=== PATIENT | male | born 1940 | race Caucasian/White ===

== ENCOUNTER 2020-10-20 08:58 | Emergency (ER) | payer OTHER, MEDICARE, SELFPAY ==
[2020-10-20] VITALS (7 sets, daily range): BP systolic 118–152; BP diastolic 56–88; PULSE 48–64; RESP 16–18; TEMP 36.4–37.1; O2SAT 95–100; BMI 23.6
--- NOTE | 2020-10-20 09:00 | XR_ITS ---
WS: [id number] XR chest 1V portable [id number] REASON FOR EXAM: syncope FINDINGS: Mild tortuosity and ectasia of the thoracic aorta. Heart size is within normal limits. Calcified granulomatous changes in both hemithoraces. No active pulmonary parenchymal or pleural disease. Deformity left humeral head which may be the result of old trauma. Mild changes of degenerative spond ylosis in the mid and lower thoracic spine. XR/XR chest 1V portable [id number] IMPRESSION: No acute chest abnormality.
--- NOTE | 2020-10-20 09:00 | ECG_ITS ---
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
--- NOTE | 2020-10-20 09:22 | ED_ITS ---
HPI - Dizziness General: Chief Complaint: Dizziness Stated Complaint: [facility] ref/vertigo/elevated BP Time Seen by Provider: 10/20/20 09:05 Source: patient and family (Spouse) Mode of arrival: ambulatory Limitations: no limitations History of Present Illness: HPI Narrative: 80-year-old male patient presents to the emergency department with dizziness and nausea for 2 weeks. He was sent to the emergency department due to high blood pressure and [facility]igo symptoms by the [facility]. Blood pressure on arrival was 136/57. He denies hypertensive history. He reports history of hypercholesterolemia, he denies falls or syncope. He reports occasional feel of falling. Spouse reports last night he did exhibit chills. Denies fever, vomiting or diarrhea. MD elicited complaint: dizziness, near syncope, difficulty walking and disequilibrium Onset (ago): week(s) (2) Timing: gradual onset and intermittent Severity: moderate Description: lightheadedness, off-balance, difficulty walking, near-syncope and ongoing Context: change in body position History of similar symptoms: No Exacerbating factors: movement/ambulation, change in body position and standing Relieving factors: remaining still and rest Associated symptoms: Reports no associated symptoms and nausea; Denies chest pain, chills, diaphoresis, headache(s), malaise, nasal congestion, palpitations, syncope or vomiting Associated neuro symptoms: Reports no associated symptoms; Deny confusion or numbness in extremities Stroke scale total: 1 Review of Systems General: Reports: 10 or more systems reviewed and unremarkable except in HPI and below Const: Reports: fatigue; Denies: fever(s), chills, change in appetite, malaise or diaphoresis Eyes: Denies: change in vision, blurry vision or eye redness ENMT: Denies: throat pain, dental pain, disequilibrium, nasal discharge or nasal congestion Card: Reports: lightheadedness (with position change); Denies: chest pain, palpitations, irregular heart rhythm, edema, syncope or orthopnea Resp: Denies: dyspnea, productive cough, non-productive cough, wheezing or chest congestion GI: Reports: nausea; Denies: abdominal pain, vomiting, early satiety, constipation or GI cramping : Denies: flank pain, difficulty urinating, dysuria or difficulty starting urination Musc: Reports: joint pain (chronic arthritis); Denies: neck pain or back pain Skin/Breast: Denies: rash, pruritus, erythema, changing lesions or changes in skin color Neuro: Reports: difficulty walking (feeling of falling), dizziness and vertigo; Denies: headache(s), numbness in extremities, weakness in extremities, sensory changes, frequent falls, confusion, behavioral changes, Slurred speech present, difficulty communicating thoughts, seizure-like activity or involuntary movements Psych: Denies: anxiety or depression Adam/Lymph: Denies: easy bruising Physical Exam Const: COMMON NORMALS: no acute distress, patient oriented x3, healthy appearing and alert GENERAL APPEARANCE: cooperative, comfortable and well hydrated ORIENTATION/CONSCIOUSNESS: Yes oriented to person, Yes oriented to place and Yes oriented to time HENMT: COMMON NORMALS: normocephalic, atraumatic, Normal external nose present and moist oral mucous membranes HEAD & SCALP: normocephalic and atraumatic FACE & SINUS: normal facial exam and face symmetric NOSE: Normal external nose present Eye: COMMON NORMALS: Equal, round and reactive pupils present and EOMs intact bilaterally GENERAL EYE: appearance normal, both eyes and all related structures PUPIL: Yes Equal, round and reactive pupils present Neck/C-Spine: COMMON NORMALS: full ROM, no lymphadenopathy and no meningeal signs GENERAL: Yes normal visual inspection and Yes trachea midline CERVICAL SPINE: Yes cervical ROM normal Lymph: LYMPHATIC: no lymphadenopathy noted Chest: COMMONS NORMALS: normal inspection of the chest Resp: COMMON NORMALS: normal respiratory effort and clear to auscultation bilaterally AUSCULTATION: clear to auscultation bilaterally Cardio: COMMON NORMALS: regular rhythm, S1 normal heart sound present and S2 normal heart sound present RHYTHM: regular rhythm HEART SOUNDS: S1 normal heart sound present and S2 normal heart sound present GI: COMMON NORMALS: Soft to palpation and non-tender INSPECTION: Yes normal to inspection PALPATION: Yes Soft to palpation : COMMON NORMALS: Yes no CVA tenderness BLADDER/KIDNEY EXAM: Yes no CVA tenderness Back/Pelvis: COMMON NORMALS: no CVA tenderness and thoracic and lumbar spine normal to inspection Extremity: COMMON NORMALS: normal to inspection, full ROM and capillary refill normal Neuro: LU COMA SCALE: document GCS findings Lu coma scale eye opening: Spontaneous Jaroso coma scale verbal response: Orientated Jaroso coma scale motor response: Obey commands Lu coma scale total score: 15 COMMON NORMALS: patient oriented x3 and no focal motor deficits SENSORIUM/ORIENTATION: Yes alert, Yes oriented to person, Yes oriented to place and Yes oriented to time MENINGEAL SIGNS: Yes no meningeal signs COORDINATION/BALANCE: [id number] test normal and Normal rapid alternating movements of the distal upper extremity present (Neuro) SPEECH: speech normal GAIT: Yes Normal gait present MOTOR EXAM: 5/5 motor strength present throughout, no tremor noted, Normal motor muscle tone present throughout and Pronator motor function present pronator drift of left upper extremity COORDINATION: [id number] test normal and rapid alternating movement UE normal Psych: COMMON NORMALS: mental status grossly normal, Normal thought process present and cooperative ACTIVITY/MOTOR BEHAVIOR: Yes appropriate eye contact THOUGHT PROCESS: Normal thought process present Skin: COMMON NORMALS: no rashes or lesions noted and turgor normal GENERAL SKIN EXAM: no rashes or lesions noted and turgor normal Course ED course: 80-year-old male patient who presents to the emergency department with 2-week history of dizziness. Patient had positive drift, abnormal neurological exam, CT of the head without contrast negative, spoke with Dr. Askew my concern of possible cerebellar involvement, CTA of the head and neck ordered with minimal atherosclerotic plaque in the intracranial and extracranial carotid arteries without significant stenosis. No occlusions of the [place] or significant atherosclerotic disease. Serology testing without significant abnormality, 2-hour troponin without elevation of delta. Will start on aspirin therapy daily. He is advised to follow-up with his primary care provider in 1 week. Advised to return to the emergency department for concerning symptoms. He is requesting something for nausea at home as medication he received here did help. Will start on meclizine and Zofran. Results of serology and radiology exams discussed with the family and patient. Questions were answered. He remained sinus rhythm/bradycardic to classroom monitor, rate in the 50s.. Vital Signs: Vital signs: Vital Signs Temperature 97.6 F 10/20/20 09:05 Pulse Rate 55 L 10/20/20 13:38 Respiratory Rate 18 10/20/20 13:38 Blood Pressure 118/64 10/20/20 13:38 Pulse Oximetry 97 10/20/20 13:38 MDM - Dizziness Lab Data: Labs: Lab Results 10/20/20 10/20/20 10/20/20 Range/Units 09:29 09:29 09:29 WBC 5.6 (4.0-10.0) 10^3/ uL RBC 5.18 (4.1-5.3) 10^6/u L Hgb 15.2 (11.7-16.6) g/dL Hct 45.8 (42.0-52.0) % MCV 88.4 (80-94) fL MCH 29.3 (28.0-34.0) pg MCHC 33.2 (30.0-36.0) g/dL RDW 12.6 (12.1-15.1) % Plt Count 181 (130-400) 10^3/c mm MPV 9.8 (7.4-10.4) fL Neut % (Auto) 68.4 % Lymph % (Auto) 20.8 % [place] % (Auto) 8.1 % Eos % (Auto) 1.6 % Baso % (Auto) 0.9 % Neut # (Auto) 3.82 (1.8-7.7) 10^3/u L Lymph # (Auto) 1.2 (0.8-4.8) 10^3/u L [place] # (Auto) 0.5 (0.2-0.9) 10^3/u L Eos # (Auto) 0.1 (0.0-0.8) 10^3/u L Baso # (Auto) 0.1 (0.0-0.1) 10^3/u L Nucleated RBC % (a uto) 0 % Nucleated RBCs # 0.0 /100WBC Sodium 138 (136-145) mmol/L Potassium 4.3 (3.5-5.1) mmol/L Chloride 104 (98-107) mmol/L Carbon Dioxide 24 (22-29) mmol/L Anion Gap 14.3 (5-19) BUN 24 H (8-23) mg/dL Creatinine 0.9 (0.7-1.2) mg/dL GFR Calculation Not Reportable Glucose 118 H (65-115) mg/dL Calculated Osmolal ity 291 (285-295) mOsm/k g Calcium 9.0 (8.5-10.5) mg/dL Total Bilirubin 0.6 (0.15-1.2) mg/dL AST 21 (0-40) U/L ALT 16 (0-41) U/L Alkaline Phosphata se 50 (40-130) IU/L Troponin T Baselin e 15 (0-15) ng/L Troponin T 120 Min katie (0-15) ng/L Delta Troponin T (0-10) ABS# Total Protein 6.2 L (6.6-8.7) g/dL Albumin 4.2 (3.5-5.2) g/dL Globulin 2.0 (1.3-4.6) g/dL 11/25/20 Range/Units 10:48 WBC (4.0-10.0) 10^3/ uL RBC (4.1-5.3) 10^6/u L Hgb (11.7-16.6) g/dL Hct (42.0-52.0) % MCV (80-94) fL MCH (28.0-34.0) pg MCHC (30.0-36.0) g/dL RDW (12.1-15.1) % Plt Count (130-400) 10^3/c mm MPV (7.4-10.4) fL Neut % (Auto) % Lymph % (Auto) % [place] % (Auto) % Eos % (Auto) % Baso % (Auto) % Neut # (Auto) (1.8-7.7) 10^3/u L Lymph # (Auto) (0.8-4.8) 10^3/u L [place] # (Auto) (0.2-0.9) 10^3/u L Eos # (Auto) (0.0-0.8) 10^3/u L Baso # (Auto) (0.0-0.1) 10^3/u L Nucleated RBC % (a uto) % Nucleated RBCs # /100WBC Sodium (136-145) mmol/L Potassium (3.5-5.1) mmol/L Chloride (98-107) mmol/L Carbon Dioxide (22-29) mmol/L Anion Gap (5-19) BUN (8-23) mg/dL Creatinine (0.7-1.2) mg/dL GFR Calculation Glucose (65-115) mg/dL Calculated Osmolal ity (285-295) mOsm/k g Calcium (8.5-10.5) mg/dL Total Bilirubin (0.15-1.2) mg/dL AST (0-40) U/L ALT (0-41) U/L Alkaline Phosphata se (40-130) IU/L Troponin T Baselin e (0-15) ng/L Troponin T 120 Min katie 15.43 H (0-15) ng/L Delta Troponin T 0.43 (0-10) ABS# Total Protein (6.6-8.7) g/dL Albumin (3.5-5.2) g/dL Globulin (1.3-4.6) g/dL Imaging Data^: CXR: Radiologist's impression: [address] [address] XRay Report Signed Patient: Landon Guevara Unit #: [id number] : 1940 Age/Sex: 80 / M ADM Date: 10/20/20 Loc: ER Room/Bed: Attending Dr: Ordering Provider/Ordering MD: Rukhsana Erickson Date of Service: 10/20/20 Procedure(s): XR chest 1V portable [id number] Accession Number(s): [id number] Report Number: [id number] WS: [id number] XR chest 1V portable [id number] REASON FOR EXAM: syncope FINDINGS: Mild tortuosity and ectasia of the thoracic aorta. Heart size is within normal limits. Calcified granulomatous changes in both hemithoraces. No active pulmonary parenchymal or pleural disease. Deformity left humeral head which may be the result of old trauma. Mild changes of degenerative spondylosis in the mid and lower thoracic spine. XR/XR chest 1V portable [id number] IMPRESSION: No acute chest abnormality. Dictated By: Uvaldo Latif Jr, MD Signed By: Uvaldo Latif Jr, MD Signed Date/Time: 10/20/20952 DD/ 8 CT Head: Radiologist's impression: [address] [address] [address] Scan Report Signed Patient: Landon Guevara Unit #: [id number] : 1940 Age/Sex: 80 / M ADM Date: 10/20/20 Loc: ER Room/Bed: Attending Dr: Ordering Provider/Ordering MD: Rukhsana Erickson Date of Service: 10/20/20 Procedure(s): CT head wo con* [id number] Accession Number(s): [id number] Report Number: [id number] WS: [id number] CT HEAD NONCONTRAST HISTORY: Dizziness/ataxia TECHNIQUE: Contiguous axial imaging performed through the brain in 2.5 mm imaging. Bone and soft tissue windows. Sagittal and coronal reformats reviewed. All CT scans at [facility] use at least one of these dose optimization techniques: automated exposure control; mA and/or kV adjustment per patient size (includes targeted exams where dose is matched to clinical indication); or iterative reconstruction. DLP: 878.67 mGy.cm COMPARISON: None available. No acute intracranial hemorrhage, midline shift or mass effect. Mild atrophy and mild to moderate chronic microvascular ischemic changes. Small lacunar infarct in the RIGHT basal ganglia. Ventricles: Normal size with no hydrocephalus. Paranasal sinuses: As visualized are clear. Mastoid air cells: Well pneumatized. Calvarium and scalp: Skull is intact with no soft tissue edema or swelling. CT/CT head wo con* [id number] IMPRESSION: 1. No acute intracranial hemorrhage. 2. Mild atrophy and chronic ischemic disease. Other Imaging: Radiologist's impression: [address] [address] [address] Scan Report Signed Patient: Landon Guevara Unit #: [id number] : 1940 Age/Sex: 80 / M ADM Date: 10/20/20 Loc: ER Room/Bed: Attending Dr: Ordering Provider/Ordering MD: Rukhsana Erickson Date of Service: 10/20/20 Procedure(s): CT angio headneck* [id number] Accession Number(s): [id number] Report Number: [id number] WS: [id number] CT ANGIOGRAM CEREBRAL AND CAROTID ARTERIES HISTORY: vertigo with ataxia TECHNIQUE: CT angiogram is performed of the carotid and cerebral arteries. Duri ng arterial injection imaging is obtained from the skull vertex to the aortic arch in 1.25 mm imaging. Coronal and sagittal reformats are submitted. Additional multi planar reformats of the carotid and cerebral arteries are submitted, MIP imaging also reviewed. NASCET criteria utilized. All CT scans at [facility] use at least one of these dose optimization techniques: automated exposure control; mA and/or kV adjustment per patient size (includes targeted exams where dose is matched to clinical indication); or iterative reconstruction. CONTRAST: Omnipaque 350; 95 mL IV. DLP: 2409.89 mGy-cm. COMPARISON: None available. Carotid Angiogram: Right carotid: Common carotid artery: Arises normally from the innominate artery. No significant plaque or stenosis. Internal carotid artery: Mildly tortuous with a small amount of calcified plaque at the bifurcation. No significant stenosis. External carotid artery: Patent. Left carotid: Common carotid artery: Arises normally from the aorta. No significant plaque or stenosis. Internal carotid artery: No plaque or stenosis. External carotid artery: Patent. Right vertebral artery: Unremarkable. Left vertebral artery: Unremarkable. Arises normally from the subclavian artery. Subclavian arteries: No stenosis or significant abnormality. Upper thorax: Normal. Thyroid gland: Normal. 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 CEREBRAL ANGIOGRAM: Intracranial vertebral arteries: Normal with no significant atherosclerosis. Basilar artery: No significant stenosis or occlusion. No aneurysm. Intracranial Internal carotid arteries: Small noncalcified plaque in the intracranial carotid arteries with no stenosis. Middle cerebral arteries: Normal. Anterior cerebral arteries and ACOM: Normal. Posterior cerebral arteries and PCOM's: Normal. Dural venous sinuses are normally enhancing. Mastoid air cells: Normal. Paranasal sinuses: Normal. Calvarium: Normal. CT/CT angio headneck* [id number] IMPRESSION: 1. Minimal atherosclerotic plaque within the intracranial and extracranial carotid arteries without significant stenosis. 2. No occlusions within the [place] or significant atherosclerotic disease. Vertebral arteries are both patent. EKG Data^: EKG 1: EKG interpretation date: 10/20/20 EKG interpretation time: 09:24 Other EKG comments: Sinus bradycardia, borderline ECG, ventricular rate 47 EKG 2: EKG interpretation date: 10/20/20 EKG interpretation time: 10:52 Other EKG comments: Sinus bradycardia, borderline ECG, ventricular rate 47 Discharge Plan Discharge Patient Disposition: Home Clinical Impression: Vertigo, Ataxia, Bradycardia Condition: Stable Prescriptions: New Adult Low Dose Aspirin 81 mg tablet,delayed release (DR/EC) 81 mg PO DAILY Qty: 30 RF: 0 meclizine 25 mg tablet 25 mg PO TID PRN (Reason: dizziness) Qty: 30 RF: 0 Zofran 4 mg tablet 4 mg PO Q4H Qty: 10 RF: 0 No Action Mobic 7.5 mg Tablet 7.5 mg PO DAILY RF: 0 pravastatin 80 mg Tablet 80 mg PO DAILY RF: 0 Flomax 0.4 mg Capsule 0.4 mg PO BID RF: 0 finasteride 5 mg Tablet 5 mg PO DAILY RF: 0 Fish Oil 1 cap PO DAILY RF: 0 Discharge Orders: Discharge Order (Routine); Ordered 10/20/20 Ordered By: Rukhsana Erickson Discharge Diet: Usual diet Discharge Activity: Limit activity as instructed Patient Instructions: Vertigo (ED), Dizziness (ED) Activity Restrictions/Additional Instructions: Drink plenty of fluids Slow to rise and slow with position changes to allow your body to acclimate to the position to avoid dizziness and falls Return to the emergency department if you develop weakness of one extremity, facial drooping or worst headache of your life, start aspirin, baby aspirin daily until follow-up with your primary care provider Meclizine has been prescribed, take medication as needed for vertigo symptoms. Follow up with your primary care provider in 1 week COVID results will be called to you, please remain in quarantine until results are known, if positive, you will be contacted by the health department Coding Level of Care Code ED Service Writer for Hi Fwmarleny Exam Comprehensive
--- NOTE | 2020-10-20 09:23 | CT_ITS ---
WS: [id number] CT HEAD NONCONTRAST HISTORY: Dizziness/ataxia TECHNIQUE: Contiguous axial imaging performed through the brain in 2.5 mm imaging. Bone and soft tiss ue windows. Sagittal and coronal reformats reviewed. All CT scans at [facility] use at ast one of these dose optimization techniques: automated exposure control; mA and/or kV adjustment pe r patient size (includes targeted exams where dose is matched to clinical indication); or iterative r econstruction. DLP: 878.67 mGy.cm COMPARISON: None available. No acute intracranial hemorrhage, midline shift or mass effect. Mild atrophy and mild to moderate chronic microvascular ischemic changes. Small lacunar infarct in th e RIGHT basal ganglia. Ventricles: Normal size with no hydrocephalus. Paranasal sinuses: As visualized are clear. Mastoid air cells: Well pneumatized. Calvarium and scalp: Skull is intact with no soft tissue edema or swelling. CT/CT head wo con* [id number] IMPRESSION: 1. No acute intracranial hemorrhage. 2. Mild atrophy and chronic ischemic disease.
[2020-10-20 09:40] LABS: Basophils # 0.1 10^3/uL (0.0-0.1); Basophils % 0.9 %; Eosinophils # 0.1 10^3/uL (0.0-0.8); Eosinophils % 1.6 %; Hematocrit 45.8 % (42.0-52.0); Hemoglobin 15.2 g/dL (11.7-16.6); Lymphocytes # 1.2 10^3/uL (0.8-4.8); Lymphocytes % 20.8 %; Mean Corpuscular HGB Conc 33.2 g/dL (30.0-36.0); Mean Corpuscular Hemoglobin 29.3 pg (28.0-34.0); Mean Corpuscular Volume 88.4 fL (80-94); Mean Platelet Volume 9.8 fL (7.4-10.4); Monocytes # 0.5 10^3/uL (0.2-0.9); Monocytes % 8.1 %; Neutrophils # 3.82 10^3/uL (1.8-7.7); Neutrophils % 68.4 %; Nucleated Red Blood Cells % 0 %; Platelet Count 181 10^3/cmm (130-400); Red Blood Count 5.18 10^6/uL (4.1-5.3); Red Cell Distribution Width 12.6 % (12.1-15.1); White Blood Count 5.6 10^3/uL (4.0-10.0)
[2020-10-20] MEDS: ondansetron 2 mg/ML SDV 2 mL 4 MG IVP (09:45)
[2020-10-20 10:02] LABS: Alanine Aminotransferase 16 U/L (0-41); Albumin Level 4.2 g/dL (3.5-5.2); Alkaline Phosphatase 50 IU/L (40-130); Aspartate Amino Transferase 21 U/L (0-40); Blood Urea Nitrogen 24 mg/dL (8-23); Carbon Dioxide 24 mmol/L (22-29); Chloride 104 mmol/L (98-107); Glucose 118 mg/dL (65-115); Osmolality Calculated 291 mOsm/kg (285-295); Sodium 138 mmol/L (136-145); Total Bilirubin 0.6 mg/dL (0.15-1.2); Total Protein 6.2 g/dL (6.6-8.7)
[2020-10-20 10:03] LABS: Troponin(5th) Baseline 15 ng/L (0-15)
[2020-10-20 10:17] LABS: Anion Gap 14.3 (5-19); Potassium 4.3 mmol/L (3.5-5.1)
--- NOTE | 2020-10-20 11:00 | ECG_ITS ---
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
[2020-10-20 11:19] LABS: Troponin 5 2HR 15.43 ng/L (0-15); Troponin 5 2HR Delta 0.43 ABS# (0-10)
--- NOTE | 2020-10-20 12:30 | CT_ITS ---
WS: [id number] CT ANGIOGRAM CEREBRAL AND CAROTID ARTERIES HISTORY: vertigo with ataxia TECHNIQUE: CT angiogram is performed of the carotid and cerebral arteries. During arterial injection imaging is obtained from the skull vertex to the aortic arch in 1.25 mm imaging. Coronal and sagittal reformats are submitted. Additional multi planar reformats of the carotid and cerebral arteries are submitted, MIP imaging also reviewed. NASCET criteria utilized. All CT scans at [facility] use at least one of these dose optimization techniques: automated exposure control; mA and/or kV ad justment per patient size (includes targeted exams where dose is matched to clinical indication); or iterative reconstruction. CONTRAST: Omnipaque 350; 95 mL IV. DLP: 2409.89 mGy-cm. COMPARISON: None available. Carotid Angiogram: Right carotid: Common carotid artery: Arises normally from the innominate artery. No significant plaque or stenosis. Internal carotid artery: Mildly tortuous with a small amount of calcified plaque at the bifurcation. No significant stenosis. External carotid artery: Patent. Left carotid: Common carotid artery: Arises normally from the aorta. No significant plaque or stenosis. Internal carotid artery: No plaque or stenosis. External carotid artery: Patent. Right vertebral artery: Unremarkable. Left vertebral artery: Unremarkable. Arises normally from the subclavian artery. Subclavian arteries: No stenosis or significant abnormality. Upper thorax: Normal. Thyroid gland: Normal. 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 CEREBRAL ANGIOGRAM: Intracranial vertebral arteries: Normal with no significant atherosclerosis. Basilar artery: No significant stenosis or occlusion. No aneurysm. Intracranial Internal carotid arteries: Small noncalcified plaque in the intracranial carotid arterie s with no stenosis. Middle cerebral arteries: Normal. Anterior cerebral arteries and ACOM: Normal. Posterior cerebral arteries and PCOM's: Normal. Dural venous sinuses are normally enhancing. Mastoid air cells: Normal. Paranasal sinuses: Normal. Calvarium: Normal. CT/CT angio headneck* [id number] IMPRESSION: 1. Minimal atherosclerotic plaque within the intracranial and extracranial car otid arteries without significant stenosis. 2. No occlusions within the [place] or significant atherosclerotic di sease. Vertebral arteries are both patent.
[2020-10-20] MEDS: iohexol 350 mg/mL 100 mL Btl IV (13:28)
--- NOTE | 2020-10-20 13:39 | PC.NURSE ---
Back from CTA, waiting for results
[2020-10-21 14:03] LABS: Quest SARS-CoV-2 RNA NOT DETECTED (NOT DETECTED)
--- NOTE | 2020-10-21 18:10 | PC.NURSE ---
pt contacted and notified of his covid results
== END 2020-10-20 14:45 | disposition home or self-care (01) ==
PROVIDERS: Emergency Provider Nurse Practitioner Family
DX: R42 Dizziness and giddiness (principal); R27.0 Ataxia, unspecified; R00.1 Bradycardia, unspecified
CPT/HCPCS: 12345; 70450; 70496; 70498; 71045; 80053; 84484; 85025; 87635; 93005; 96374; 96375; 99283; 99284; J2405; Q9967

== ENCOUNTER 2020-12-07 09:22 | Outpatient (CLI) | payer OTHER, SELFPAY ==
--- NOTE | 2020-12-07 09:43 | CT_ITS ---
WS: [id number] CT CHEST WITH INTRAVENOUS CONTRAST HISTORY: PULMONARY NODULE TECHNIQUE: Contiguous 5 mm axial imaging performed on the thorax. Coronal and sagittal reformats are submitted. All CT scans at [facility] use at least one of these dose optimization techniq ues: automated exposure control; mA and/or kV adjustment per patient size (includes targeted exams wh ere dose is matched to clinical indication); or iterative reconstruction. CONTRAST: Omnipaque 300; 95 mL IV. DLP: 834.64 mGycm COMPARISON: None available. Lungs and central airway: Hyperexpanded lungs from emphysema. There are several bilateral pulmonary n odules identified. The largest nodule is along the RIGHT minor fissure measuring 9 mm. These are typi griffin benign. There are a few benign additional scattered nodules ranging from 2 to 4 mm throughout b oth lungs. There are some additional calcified nodules. Pleura: Normal. No pleural effusion. Heart and pericardium: Normal size heart with no pericardial effusion. Mediastinum and gianna: No mediastinum or hilar adenopathy. Vessels: Mild atherosclerosis aorta with no aneurysm. Normal size pulmonary artery. Chest wall and lower neck: No soft tissue masses. Upper abdomen: Hepatic cyst in the LEFT lobe measures 1.2 cm. Normal appearance of the gallbladder. N o bile duct dilatation. Cortical cyst upper pole RIGHT kidney measures 1.2 cm. Lipomatous changes at the ileocecal valve. Osseous structures: Mild increase in the thoracic kyphosis. CT/CT chest w con* [id number] IMPRESSION: 1. Subcentimeter pulmonary nodules as described above. No dominant mass or ginger nopathy. Recommend follow-up chest CT with IV contrast in 6-12 months. 2. Minimal atherosclerosis aorta.
[2020-12-07] MEDS: iohexol 300 mg/mL 100 mL Btl IV (10:13)
== END 2020-12-07 09:23 | disposition home or self-care (01) ==
LOC: RADWPI 09:24
PROVIDERS: PCP Nurse Practitioner; Visit Provider Nurse Practitioner
DX: R91.1 Solitary pulmonary nodule (principal); I70.0 Atherosclerosis of aorta
CPT/HCPCS: 71260; Q9967

== ENCOUNTER → 2021-06-09 08:35 | Outpatient (BNVA) | payer OTHER, SELFPAY | PROVIDERS: PCP Nurse Practitioner; Referring Provider Nurse Practitioner; Visit Provider Urology | DX: N40.0 Benign prostatic hyperplasia without lower urinary tract symptoms (principal); N40.1 Benign prostatic hyperplasia with lower urinary tract symptoms; N13.8 Other obstructive and reflux uropathy | CPT/HCPCS: 81003 ==

== ENCOUNTER 2022-03-31 07:55 | Outpatient (CLI) | payer OTHER, SELFPAY ==
--- NOTE | 2022-03-31 08:03 | CT_ITS ---
WS: [id number] CT CHEST TECHNIQUE: Contrast enhanced CT of the chest with coronal and sagittal reformatted images. CLINICAL INFORMATION: FOLLOW UP ON PULMONARY NODULES COMPARISON: CT chest December 07, 2020 DLP: 730.[address] scans at [facility] use at least one of these dose optimization techniques: automated e xposure control; mA and/or kV adjustment per patient size (includes targeted exams where dose is matc hed to clinical indication); or iterative reconstruction. FINDINGS: Multiple stable subcentimeter pulmonary nodules. No new suspicious pulmonary parenchymal ab normalities. A few calcified granulomas. Stable focal pleural thickening along the RIGHT horizontal f issure. Moderate chronic emphysematous changes. No acute pulmonary infiltrates. No focal pneumonia or pleural fluid. Normal caliber thoracic aorta. Normal thyroid. Coronary calcification. Normal renal parenchymal enhancement. Adrenal glands are normal. Small RIGHT renal cyst. LEFT hepatic cyst. Small esophageal hiatal hernia. Splenic granulomas. Celiac and SMA are patent. Mild thoracic curve. Mild thoracic kyphosis. CT/CT chest w con* [id number] IMPRESSION: 1. Again seen are multiple subcentimeter pulmonary nodules unchanged since the prior examination. No new suspicious lung parenchymal abnormalities. Recommend 12-18 month follow-up. 2. Stable focal pleural thickening along the RIGHT horizontal fissure. 3. No mediastinal or hilar lymphadenopathy. 4. No other change compared to previous.
[2022-03-31 08:48] LABS: Alanine Aminotransferase 24 U/L (0-41); Albumin Level 4.2 g/dL (3.5-5.2); Alkaline Phosphatase 64 IU/L (40-130); Aspartate Amino Transferase 34 U/L (0-40); Blood Urea Nitrogen 24 mg/dL (8-23); Calcium 9.1 mg/dL (8.5-10.5); Carbon Dioxide 24 mmol/L (22-29); Chloride 105 mmol/L (98-107); Globulin 2.3 g/dL (1.3-4.6); Glucose 103 mg/dL (65-115); Osmolality Calculated 292 mOsm/kg (285-295); Sodium 139 mmol/L (136-145); Total Bilirubin 0.4 mg/dL (0.15-1.2); Total Protein 6.5 g/dL (6.6-8.7)
[2022-03-31] MEDS: iohexol 350 mg/mL 100 mL Btl IV (09:24)
== END 2022-03-31 07:56 | disposition home or self-care (01) ==
LOC: RAD 07:56
PROVIDERS: Podiatrist Foot & Ankle Surgery; PCP Electrodiagnostic Medicine; Visit Provider Nurse Practitioner
DX: L60.3 Nail dystrophy (principal)
CPT/HCPCS: 71260; 80053

== ENCOUNTER 2022-12-28 10:43 | Emergency (ER) | payer OTHER, SELFPAY ==
--- NOTE | 2022-12-28 10:44 | XR_ITS ---
WS: [id number] Portable AP upright chest, 12/28/2022 Clinical Data: cp Comparison: Portable chest, 10/20/2020 Findings: No nodules, masses or effusions are seen. The heart is normal. The pulmonary vascularity is not increased. No pneumonia or pneumothorax is seen. The aortic arch and descending thoracic aorta s how mild tortuosity. 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 XR/XR chest 1V portable [id number] Impression: Atherosclerosis.
[2022-12-28 10:49] VITALS: BP 135/65; PULSE 68; RESP 16; TEMP 36.5; O2SAT 97; BMI 23.6
--- NOTE | 2022-12-28 10:51 | ECG_ITS ---
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 Measurements Intervals [place] Rate: 66 P: 61 CT: 141 QRS: -2 QRSD: 90 T: 89 QT: 382 QTc: 402 Interpretive Statements SINUS RHYTHM NONSPECIFIC T-WAVE ABNORMALITY Compared to ECG 10/20/2020 10:51:37 T-wave abnormality now present Sinus bradycardia no longer present Electronically Signed On 12-28-2022 12:52:35 HEATER HELPER by Tamara Cheema M.D. [email or web address]/store/[id number]
[2022-12-28 10:57] VITALS: BP 135/65; PULSE 72; RESP 16; O2SAT 97
--- NOTE | 2022-12-28 11:12 | ED_ITS ---
HPI - Chest Pain General: Chief Complaint: Chest Pain Stated Complaint: Chest Pain Time Seen by Provider: 12/28/22 10:58 Source: patient and family Mode of arrival: EMS Limitations: no limitations History of Present Illness: This patient was transported by EMS from home. He has been having chest discomfort that he describes as a soreness across his chest for approximately 1 week. He states its been pretty constant. He states he does take ibuprofen which relieves his symptoms some. He states that this morning he was awakened by increased soreness at approximately 3 AM and there was some transient left arm numbness. States he got up had a couple coffee read the news and then went and laid back down. He is here now because of concerns about this chest discomfort. He denies any recent fevers, cough, exposure to infectious disease. He had COVID in October but has recovered fully from that as far as he is aware and was a mild illness at that time. He states he is normally very active can hike several miles without any shortness of breath, chest pain fatigue etc. other than if he moves faster than normal. He is a non- smoker. He had an angiogram approximately 20 years ago and was told he had a very small blockage in the back of his heart and nothing needed to be done at that time. He does admit to using a broom and knocking snow off the trees approximately a week ago seemingly near or about the time his symptoms began. He takes lipid lowering medication, prostate medication as well as a 81 mg aspirin a day. EMS gave him sublingual nitroglycerin as well as aspirin prior to arrival. He thinks that nitroglycerin may have reduced his symptoms. He now just has some mild soreness that he describes as in his left side chest. MD complaint: chest pain Onset: during rest Pain radiation: none Severity: moderate Relieving factors: other (Ibuprofen) Associated symptoms: Reports no associated symptoms; Deny abdominal pain, fever(s), nausea, palpitations, syncope or vomiting Treatment prior to arrival: aspirin and nitroglycerin Risk Factors: Coronary artery disease risk factors: hyperlipidemia Thoracic aortic dissection risk factors: none Review of Systems Const: Denies: fever(s) or chills ENMT: Denies: odynophagia, nasal discharge or nasal congestion Card: Reports: chest pain; Denies: palpitations, syncope, dyspnea on exertion or orthopnea Resp: Denies: productive cough, non-productive cough or wheezing GI: Denies: abdominal pain, nausea or vomiting : Denies: flank pain, difficulty urinating or dysuria Musc: Denies: neck pain, back pain, extremity pain or extremity swelling Skin/Breast: Denies: rash Neuro: Denies: numbness in extremities or weakness in extremities Adam/Lymph: Reports: easy bruising PFSH ED PFSH: Medical History Arthritis BPH w urinary obs/LUTS Dizziness Family history of prostate problems Surgical History History of cataract extraction History of hernia surgery Family History Father , AT 56 No problems noted. Mother , AT 93 Heart disease Other CAD (coronary artery disease) Cancer Social History Smoking and tobacco status: never smoked Alcohol intake: current Alcohol intake frequency: holidays/special occasions only Marital status: Current occupational status: retired History of recent travel: No Physical Exam Narrative: EXAM NARRATIVE: Healthy-appearing individual who looks younger than stated age. Speech is goal- directed and fluent. Const: COMMON NORMALS: no acute distress, average body habitus and patient oriented x3 GENERAL APPEARANCE: cooperative, comfortable and well kempt ORIENTATION/CONSCIOUSNESS: Yes awake HENMT: COMMON NORMALS: normocephalic, Normal nasal mucous membranes and turbinates present and moist oral mucous membranes HEAD & SCALP: normocep halic FACE & SINUS: normal facial exam NOSE: Normal nasal mucous membranes and turbinates present Eye: COMMON NORMALS: Equal, round and reactive pupils present, EOMs intact bilaterally and conjunctivae normal CONJUNCTIVA: Yes conjunctivae normal PUPIL: Yes Equal, round and reactive pupils present Neck/C-Spine: COMMON NORMALS: full ROM, supple, no JVD and No carotid bruits Chest: COMMONS NORMALS: normal inspection of the chest OTHER: Mild tenderness in the left lateral chest. No skin changes, ecchymosis etc. Symptoms seem to be exacerbated or and/or reproduced by abduction of arms. Resp: COMMON NORMALS: normal respiratory effort, No use of accessory muscles and clear to auscultation bilaterally AUSCULTATION: clear to auscultation bilaterally Cardio: COMMON NORMALS: no JVD, regular rate, regular rhythm, No murmurs present (Cardio) and Peripheral pulses 2+ throughout RATE: regular rate RHYTHM: regular rhythm PERIPHERAL PULSES: Peripheral pulses 2+ throughout GI: COMMON NORMALS: Normal to inspection, nondistended, normoactive bowel sounds present, Soft to palpation and non-tender PALPATION: Yes Soft to palpation : COMMON NORMALS: Yes no CVA tenderness BLADDER/KIDNEY EXAM: Yes no CVA tenderness Back/Pelvis: COMMON NORMALS: no CVA tenderness, thoracic and lumbar spine normal to inspection, no thoracic nor lumbar tenderness and thoraco-lumbar ROM normal Extremity: COMMON NORMALS: normal to inspection, full ROM, capillary refill normal, no calf tenderness and no pedal edema Neuro: COMMON NORMALS: patient oriented x3, moves all extremities, no focal motor deficits and no sensory deficits noted CRANIAL NERVES: Yes CN normal except as noted SPEECH: speech normal Psych: COMMON NORMALS: mental status grossly normal APPEARANCE: Yes well kempt Skin: COMMON NORMALS: no rashes or lesions noted, no wounds and turgor normal GENERAL SKIN EXAM: no rashes or lesions noted and turgor normal Course Reevaluation(s): Reevaluation #1: No new or focal findings on reevaluation. He still has reproducible chest wall discomfort with deep breaths and certain movements. No other concerning findings. I shared reassuring nature of serial biomarkers, serial EKGs. Low risk of ACS or other worrisome etiology of symptoms today. More suggestive of chest wall pain however because of his coronary artery risk factors with known coronary disease I think it is reasonable for us to facilitate a provocative te st sometime in the next 30 days. Of also discussed return precautions with patient and spouse. Time: 14:31 Vital Signs: Vital signs: Vital Signs Temperature 97.7 F 12/28/22 10:49 Pulse Rate 57 L 12/28/22 13:51 Respiratory Rate 16 12/28/22 13:51 Blood Pressure 120/59 12/28/22 13:51 Pulse Oximetry 98 12/28/22 13:51 Oxygen Delivery Me thod 12/28/22 13:51 MDM - Chest Pain Medical Decision Making Patient with symptoms of persistent chest soreness over the past week. There is seem to be some time relationship with snow cleaning and then subsequently the onset of symptoms. He has a history of possible mild coronary artery disease that did not require intervention noted approximately 20 years ago. However he is a very vigorous individual who hikes several miles quite frequently without chest pain shortness of breath or other symptoms. His clinical examination was notable for reproducible chest wall symptoms suggestive of similar symptoms as he has been experiencing over the past week. No other focal findings. Work-up was engaged to ensure no active ACS, other concerning etiologies. Review of past CTs made great vessel disease very unlikely. He has no risk factors and no clinical picture that suggest thromboembolic disease. His serial biomarkers were slightly elevated but did not show any rise in fact fell on subsequent biomarkers. Serial EKGs revealed no evidence of acute ischemia. Low likelihood of ACS, pneumonia, aortic aneurysm, pulmonary embolus etc. at this time. He is likely chest wall related and he is being discharged to continue outpatient follow-up. We have engaged case management to help arrange a provocative test in the next 2 to 3 weeks. Also discussed return precautions. Both he and spouse voiced understanding. Medical Records I reviewed the patient's medical records. I have reviewed prior chest CTs from 2019, 2020. They do mention polyps pulmonary nodules which is the reason for the chest CT but also note that there is no evidence of aneurysm or other great vessel disease other than mild atherosclerosis. There was no specific mention of any coronary artery calcifications. Lab Data I reviewed the patient's lab results. 12/28/22 11:10 12/28/22 11:10 Radiology Impressions Chest X-Ray 12/28/22 10:44 Impression: Atherosclerosis. Laboratory Results WBC 5.4 10^3/uL (4.0-10.0) 12/28/22 11:10 RBC 5.14 10^6/uL (4.1-5.3) 12/28/22 11:10 Hgb 14.9 g/dL (11.7-16.6) 12/28/22 11:10 Hct 45.9 % (42.0-52.0) 12/28/22 11:10 MCV 89.3 fl (80-94) 12/28/22 11:10 MCH 29.0 pg (28.0-34.0) 12/28/22 11:10 MCHC 32.5 g/dL (30.0-36.0) 12/28/22 11:10 RDW 12.8 % (12.1-15.1) 12/28/22 11:10 Plt Count 196 10^3/cmm (130-400) 12/28/22 11:10 MPV 9.3 fL (7.4-10.4) 12/28/22 11:10 Neut % (Auto) 56.1 % 12/28/22 11:10 Lymph % (Auto) 29.8 % 12/28/22 11:10 Holmes % (Auto) 10.0 % 12/28/22 11:10 Eos % (Auto) 2.4 % 12/28/22 11:10 Baso % (Auto) 1.5 % 12/28/22 11:10 Neut # (Auto) 3.04 10^3/uL (1.8-7.7) 12/28/22 11:10 Lymph # (Auto) 1.6 10^3/uL (0.8-4.8) 12/28/22 11:10 Holmes # (Auto) 0.5 10^3/uL (0.2-0.9) 12/28/22 11:10 Eos # (Auto) 0.1 10^3/uL (0.0-0.8) 12/28/22 11:10 Baso # (Auto) 0.1 10^3/uL (0.0-0.1) 12/28/22 11:10 Nucleated RBC % (auto) 0 % 12/28/22 11:10 Nucleated RBCs # 0.0 /100WBC 12/28/22 11:10 Sodium 140 mmol/L (136-145) 12/28/22 11:10 Potassium 4.7 mmol/L (3.5-5.1) 12/28/22 11:10 Chloride 103 mmol/L (98-107) 12/28/22 11:10 Carbon Dioxide 29 mmol/L (22-29) 12/28/22 11:10 Anion Gap 12.7 (5-19) 12/28/22 11:10 BUN 22 mg/dL (8-23) 12/28/22 11:10 Creatinine 1.0 mg/dL (0.7-1.2) 12/28/22 11:10 GFR Calculation Not Reportable 12/28/22 11:10 Glucose 103 mg/dL (65-115) 12/28/22 11:10 Calculated Osmolality 294 mOsm/kg (285-295) 12/28/22 11:10 Calcium 9.2 mg/dL (8.5-10.5) 12/28/22 11:10 Total Bilirubin 0.3 mg/dL (0.15-1.2) 12/28/22 11:10 AST 25 U/L (0-40) 12/28/22 11:10 ALT 20 U/L (0-41) 12/28/22 11:10 Alkaline Phosphatase 54 U/L (40-130) 12/28/22 11:10 Troponin T Baseline 19 ng/L (0-15) H 12/28/22 11:10 Troponin T 120 Minute 16.89 ng/L (0-15) H 12/28/22 13:20 Delta Troponin T -2.11 ABS# (0-10) L 12/28/22 13:20 NT-Pro-B Natriuret Pep 53 pg/mL (0-450) 12/28/22 11:10 Total Protein 6.7 g/dL (6.6-8.7) 12/28/22 11:10 Albumin 4.0 g/dL (3.5-5.2) 12/28/22 11:10 Globulin 2.7 g/dL (1.3-4.6) 12/28/22 11:10 EKG Data EKG 1: I personally reviewed and interpreted this EKG as follows: Interpretation: Contemporaneous review of EKG reveals a ventricular rate of 66 bpm. Normal [place] interval, QRS duration, corrected QT interval. Normal axis. No acute ST-T wave changes noted at this time. EKG 2: I personally reviewed and interpreted this EKG as follows: Interpretation: Repeat EKG this visit reveals a ventricular rate of 55 bpm consistent with sinus bradycardia. Normal intervals, normal axis. No acute ST-T wave changes. No significant change from prior tracing. Discharge Plan Discharge Patient Disposition: Home Clinical Impression: Chest pain, Chest wall pain Condition: Stable Prescriptions: No Action pravastatin 80 mg Tablet 80 mg PO DAILY tamsulosin [Flomax] 0.4 mg Capsule 0.4 mg PO BID finasteride 5 mg Tablet 5 mg PO BEDTIME omega 8-sqc-erj-fish oil [Fish Oil] 1,200 (144-216) mg Capsule 1,200 cap PO DAILY Rx Instructions: pt brought in med list with this medication on it-pts va list has 1 cap po bid aspirin [Adult Low Dose Aspirin] 81 mg tablet,delayed release (DR/EC) 81 mg PO DAILY Qty: 30 0RF Discharge Orders: Discharge ED (Routine); Ordered 12/28/22 Ordered By: Randy Bains Referrals: Kalpesh Rush DO [Primary Care Provider] - Discharge Diet: Usual diet Discharge Activity: Increase activity as tolerated Patient Instructions: Opioid Safety, Pain Management Activity Restrictions/Additional Instructions: As we discussed while you are in the emergency department we did not discover any serious etiology of your current chest pain to include no evidence of a heart attack today or any other serious condition that required immediate hospitalization and or intervention. We have consulted case management to help us facilitate a stress test in the next 2 to 3 weeks. If you develop any change in your chest pain, fever, worsening symptoms of concern at any time return to this or the nearest emergency department. Coding Level of Care Code ED Kitchen Helper for Hi Doshi Exam Comprehensive
[2022-12-28 11:21] LABS: Basophils # 0.1 10^3/uL (0.0-0.1); Basophils % 1.5 %; Eosinophils # 0.1 10^3/uL (0.0-0.8); Eosinophils % 2.4 %; Hematocrit 45.9 % (42.0-52.0); Hemoglobin 14.9 g/dL (11.7-16.6); Lymphocytes # 1.6 10^3/uL (0.8-4.8); Lymphocytes % 29.8 %; Mean Corpuscular HGB Conc 32.5 g/dL (30.0-36.0); Mean Corpuscular Volume 89.3 fl (80-94); Mean Platelet Volume 9.3 fL (7.4-10.4); Monocytes # 0.5 10^3/uL (0.2-0.9); Neutrophils # 3.04 10^3/uL (1.8-7.7); Neutrophils % 56.1 %; Nucleated Red Blood Cells % 0 %; Platelet Count 196 10^3/cmm (130-400); Red Blood Count 5.14 10^6/uL (4.1-5.3); Red Cell Distribution Width 12.8 % (12.1-15.1); White Blood Count 5.4 10^3/uL (4.0-10.0)
[2022-12-28 11:43] LABS: Troponin(5th) Baseline 19 ng/L (0-15)
[2022-12-28 11:52] LABS: Alanine Aminotransferase 20 U/L (0-41); Alkaline Phosphatase 54 U/L (40-130); Anion Gap 12.7 (5-19); Aspartate Amino Transferase 25 U/L (0-40); Blood Urea Nitrogen 22 mg/dL (8-23); Calcium 9.2 mg/dL (8.5-10.5); Carbon Dioxide 29 mmol/L (22-29); Chloride 103 mmol/L (98-107); Creatinine Clr Calc Pharmacy 56.5646; Globulin 2.7 g/dL (1.3-4.6); Glucose 103 mg/dL (65-115); NT Pro B Type Natriuretic Pept 53 pg/mL (0-450); Osmolality Calculated 294 mOsm/kg (285-295); Potassium 4.7 mmol/L (3.5-5.1); Sodium 140 mmol/L (136-145); Total Bilirubin 0.3 mg/dL (0.15-1.2); Total Protein 6.7 g/dL (6.6-8.7)
[2022-12-28 12:44] VITALS: BP 126/61; PULSE 54; RESP 14; O2SAT 98
--- NOTE | 2022-12-28 12:47 | ECG_ITS ---
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 Measurements Intervals [place] Rate: 55 P: 59 [place]: 145 QRS: -5 QRSD: 89 T: 53 QT: 417 QTc: 401 Interpretive Statements SINUS BRADYCARDIA LOW QRS VOLTAGE IN PRECORDIAL LEADS [QRS DEFLECTION < 1.0 mV IN CHEST LEADS] Compared to ECG 12/28/2022 10:51:02 Low QRS voltage now present Sinus rhythm no longer present T-wave abnormality no longer present Electronically Signed On 12-28-2022 12:54:44 DIRECTOR OF OPERATIONS FOR THERAPY by Tamara Cheema M.D. [id number]
[2022-12-28 13:51] VITALS: BP 120/59; PULSE 57; RESP 16; O2SAT 98
[2022-12-28 13:54] LABS: Troponin 5 2HR 16.89 ng/L (0-15)
[2022-12-28 14:00] LABS: Troponin 5 2HR Delta -2.11 ABS# (0-10)
--- NOTE | 2022-12-29 09:50 | DCPLANNER ---
Addendum entered by Cathy Lewis 02/06/23 07:51: Patient had follow up appointment at [facility] - patient did attend appointment Addendum entered by Cathy Lewis 01/04/23 15:23: Patient has a follow up appointment scheduled for , January 11, 2023 at 1:[address] Valladares at [facility]. Clinic will call patient with appointment information. Addendum entered by Cathy Lewis 12/29/22 09:52: Patient has [place] insurance, cannot order the stress test from the ER. tire center manager will refer patient to cardiology, for follow up. tire center manager sent patients information to the front office staff at [facility]. Patients information will be printed and reviewed. Clinic will call patient with appointment information. Original Note: tire center manager had message to schedule an out patient stress test for patient. tire center manager faxed signed order to centralized scheduling, who will call patient with appointment information.
== END 2022-12-28 14:45 | disposition home or self-care (01) ==
PROVIDERS: Physician Assistant; Emergency Provider Emergency Medicine; PCP Electrodiagnostic Medicine
DX: R07.89 Other chest pain (principal)
CPT/HCPCS: 36415; 71045; 80053; 83880; 84484; 85025; 93005; 99285

== ENCOUNTER → 2023-01-11 13:12 | Outpatient (BNVA) | payer OTHER, SELFPAY | PROVIDERS: PCP Electrodiagnostic Medicine; Visit Provider Internal Medicine Cardiovascular Disease | DX: R07.9 Chest pain, unspecified (principal); E78.2 Mixed hyperlipidemia | CPT/HCPCS: 99213 ==

== ENCOUNTER 2023-02-07 06:09 | Outpatient (CLI) | payer OTHER, SELFPAY ==
--- NOTE | 2023-02-07 06:29 | ECG_ITS ---
[facility] Test Date: 2023-02-07 Pat Name: Landon Guevara Department: Room: Gender: Male Day Worker: : 1940 Requested By: Jem Valladares Order Number: [id number] Alex MD: Sylvie Grace M.D. Interpretive Statements NAME OF STUDY: EXERCISE SESTAMIBI STRESS TEST INDICATION: Chest Pain PROCEDURE: The baseline electrocardiogram showed normal sinus rhythm with normal ST-Ts. At the baseline, the patient's blood pressure was 138/82 mm Hg with a heart rate of 59. The patient exercised for 7 minutes and 33 seconds on a standard Chase protocol. Patient attained a maximum heart rate of 131 beats per minute(96% of the maximum predicted heart rate) with a blood pressure at the peak exercise of 191/68 mm Hg. The EKG at the peak exercise revealed nonspecific ST changes. Patient did not have any chest pain or any significant arrhythmis with the exercise Sestamibi was injected 1 minute prior to the peak exercise During the recovery phase, there were no new changes. Blood pressure at the end of the recovery phase was 157/74 mm Hg with a heart rate of 78 per minute. CONCLUSION: 1. Nonspecific EKG changes with the treadmill exercise . 2. No exercise-induced chest pain or cardiac arrhythmia 3. Fair exercise tolerance, attained a maximum of 10.2 METs 4. Sestamibi/Sestamibi perfusion results pending; see separate report. Electronically Signed On 02-09-2023 13:06:22 CDT by Sylvie Grace M.D. [email or web address]/store/[id number]
--- NOTE | 2023-02-07 06:29 | NMCV_ITS ---
NM dayday perf SPECT r/s* [id number] Ismael Landon Age: 83 Gender: M : 1940 Exam Date: 02/07/2023 07:17 Ordering Phys: Jem Valladares MD ([email or web address]) Technologist: NEHA Devlin Exam Location: [facility] Indications: Chest Pain STRESS TEST Please see separate stress test report in [facility] for full findings IMAGE PROTOCOL Rest/Stress 1 Radiopharmaceutical Dose (mCi) Administration Site Administered by Rest: Tc-99m 10.8 IV NEHA Humphreys Sestamibi Stress:Tc-99m 32.7 IV NEHA Singh Sestamibi Rest: 07-Feb-2023 60 Discovery 630 Stress: 07-Feb-2023 30 Discovery 630 Radiopharmaceutical was injected at 87 % maximum heart rate. Images obtained in supine and prone position. SPECT RESULTS Technical Quality: Excellent Raw Data Analysis: Normal Image Corrections: No attenuation or motion correction applied Summed Stress Score: 2 Summed Rest Score: 3 Summed Difference Score: 0 PERFUSION FINDINGS Small to moderate area of decreased tracer uptake in the mid inferolateral and apical lateral region. No s significant reversibility was noted in these regions. FUNCTIONAL RESULTS (calculated via Gated SPECT) Stress Image LV EF (%): 65 Stress EDV (mL):82 TID: 1.13 Stress ESV (mL):29 FUNCTIONAL FINDINGS: Segmental wall motion analysis revealing no gross wall motion abnormalities IMPRESSIONS 1. Myocardial perfusion imaging revealing small to moderate area of persistent decreased tracer uptake in the inferolateral lateral and apical lateral regions suggestive of myocardial scarring in the distribution of the left circumflex artery. 2. Normal LV ejection fraction of 65%. 3. LV wall motion analysis revealing no gross wall motion abnormalities. 4. Normal LV volume Low probability for coronary ischemia, based on the above findings No similar previous studies are available for comparison Dr Sylvie Grace MD FAC (Electronically Signed) Final Date: 07 February 2023 12:44 S
[2023-02-07 08:35] VITALS: BP 126/68; PULSE 79
== END 2023-02-07 06:10 | disposition home or self-care (01) ==
LOC: CDL 06:11
PROVIDERS: PCP Electrodiagnostic Medicine; Visit Provider Internal Medicine Cardiovascular Disease
DX: R07.9 Chest pain, unspecified (principal)
CPT/HCPCS: 36415; 78452; 93017; A9500

== ENCOUNTER → 2023-04-24 09:24 | Outpatient (BNVA) | payer OTHER, SELFPAY | PROVIDERS: PCP Electrodiagnostic Medicine; Referring Provider Nurse Practitioner; Visit Provider Orthopaedic Surgery | DX: M19.012 Primary osteoarthritis, left shoulder (principal) | CPT/HCPCS: 99203 ==

== ENCOUNTER 2023-04-25 08:52 | Outpatient (CLI) | payer OTHER, SELFPAY ==
--- NOTE | 2023-04-25 08:55 | CT_ITS ---
WS: [id number] CT chest w con* [id number] HISTORY: ABNORMAL CT CHEST REPEAT 12 MONTHS TECHNIQUE: Axial imaging performed through the thorax. Coronal and sagittal reformats are submitted. All CT scans at [facility] use at least one of these dose optimization techniques: automated exposure control; mA and/or kV adjustment per patient size (includes targeted exams where dose is mat ched to clinical indication); or iterative reconstruction. CONTRAST: Omnipaque 350; 100 mL IV. DLP: 218.84 mGy.cm COMPARISON: 03/31/2022, 12/07/2020 Lungs and central airway: Hyperexpanded lungs from emphysema. Scattered numerous subcentimeter nodule s are stable. Mild pleural thickening along the minor fissure is also stable. There are no new or enl arging nodules since 12/07/2020. No pneumonia. Pleura: Normal. No pleural effusion. Heart and pericardium: Mildly enlarged heart. No effusion. Mediastinum and gianna: No mediastinum or hilar adenopathy. Vessels: Mild atherosclerosis aorta. Normal size pulmonary artery. Chest wall and lower neck: No soft tissue masses. Upper abdomen: Small hiatal hernia. Mild hepatic steatosis. RIGHT colon extends anterior to the liver . LEFT lobe hepatic cyst stable maximum diameter 1.5 cm. No bile duct dilatation. Visualized gallblad cleo is normal. Negative pancreas. Negative spleen. No adrenal mass. Stable RIGHT renal cyst measuring 1.5 cm. Mild cortical thinning upper pole of each kidney. Osseous structures: No destructive bone lesions. Mild narrowing of the glenohumeral joints. CT/CT chest w con* [id number] IMPRESSION: 1. Subcentimeter, bilateral noncalcified pulmonary nodules and thickening hanna g the RIGHT minor fissure are stable since 12/07/2020. No new or increasing size of nodule or mass. No additional follow-up necessary. 2. Chronic emphysema. 3. Hepatic and RIGHT renal cysts.
[2023-04-25] MEDS: iohexol 350 mg/mL 500 mL Btl (per mL) IV (09:18)
== END 2023-04-25 08:53 | disposition home or self-care (01) ==
LOC: RAD 08:52
PROVIDERS: PCP Electrodiagnostic Medicine; Visit Provider Nurse Practitioner
DX: R91.8 Other nonspecific abnormal finding of lung field (principal); J43.9 Emphysema, unspecified; K76.89 Other specified diseases of liver; N28.1 Cyst of kidney, acquired
CPT/HCPCS: 71260; Q9967

== ENCOUNTER → 2023-08-15 09:11 | Outpatient (BNVA) | payer OTHER, SELFPAY | PROVIDERS: PCP Electrodiagnostic Medicine; Visit Provider Nurse Practitioner Family | DX: D22.5 Melanocytic nevi of trunk (principal); L57.8 Other skin changes due to chronic exposure to nonionizing radiation; L82.1 Other seborrheic keratosis; L81.4 Other melanin hyperpigmentation; L82.0 Inflamed seborrheic keratosis; L57.0 Actinic keratosis | CPT/HCPCS: 17000; 17110; 99213 ==

== ENCOUNTER → 2024-02-22 08:09 | Outpatient (BNVA) | payer OTHER, SELFPAY | PROVIDERS: PCP Electrodiagnostic Medicine; Visit Provider Nurse Practitioner Family | DX: D48.5 Neoplasm of uncertain behavior of skin (principal); L57.0 Actinic keratosis; L82.0 Inflamed seborrheic keratosis; L57.8 Other skin changes due to chronic exposure to nonionizing radiation | CPT/HCPCS: 11102; 17000; 17110; 99213 ==

== ENCOUNTER → 2024-03-11 08:53 | Outpatient (BNVA) | payer OTHER, SELFPAY | PROVIDERS: PCP Electrodiagnostic Medicine; Visit Provider Dermatology | DX: C44.42 Squamous cell carcinoma of skin of scalp and neck (principal) | CPT/HCPCS: 12042; 17311 ==

== ENCOUNTER → 2024-03-21 07:55 | Outpatient (BNVA) | payer OTHER, SELFPAY | PROVIDERS: PCP Electrodiagnostic Medicine; Visit Provider Dermatology | DX: C44.42 Squamous cell carcinoma of skin of scalp and neck (principal) | CPT/HCPCS: 99212 ==

== ENCOUNTER → 2024-07-14 13:40 | Outpatient (BNVA) | payer OTHER, SELFPAY | PROVIDERS: PCP Electrodiagnostic Medicine; Visit Provider Nurse Practitioner Family | DX: L57.0 Actinic keratosis (principal); L82.1 Other seborrheic keratosis; L57.8 Other skin changes due to chronic exposure to nonionizing radiation; D22.5 Melanocytic nevi of trunk; L81.4 Other melanin hyperpigmentation | CPT/HCPCS: 17000; 99213 ==

== ENCOUNTER → 2024-10-21 08:48 | Outpatient (BNVA) | payer OTHER, SELFPAY | PROVIDERS: PCP Electrodiagnostic Medicine; Visit Provider Student in an Organized Health Care Education/Training Program | DX: M17.11 Unilateral primary osteoarthritis, right knee; M70.41 Prepatellar bursitis, right knee | CPT/HCPCS: 73560; 73565; 99203 ==

== ENCOUNTER → 2024-12-03 15:50 | Outpatient (BNVA) | payer OTHER, SELFPAY | PROVIDERS: PCP Electrodiagnostic Medicine; Visit Provider Internal Medicine Cardiovascular Disease | DX: R07.9 Chest pain, unspecified (principal); I51.9 Heart disease, unspecified; E78.5 Hyperlipidemia, unspecified | CPT/HCPCS: 99214 ==

== ENCOUNTER 2024-12-26 07:03 | Outpatient (CLI) | payer OTHER, SELFPAY ==
--- NOTE | 2024-12-26 | ECG_ITS ---
[employer] Test Date: 2024-12-26 Pat Name: Landon Guevara Department: Room: Gender: Male Bead Cutter: : 1940 Requested By: Connie Macias Order Number: [id number] Alex MD: Bertin Clifford M.D. Interpretive Statements EXERCISE MIBI EXERCISE DATA: The patient was exercised by Chase protocol. Baseline heart rate was 57 beats per minute. Baseline blood pressure was 148/77 millimeters of mercury. Maximal predicted heart rate was 135 beats per minute. Maximum heart rate achieved was 128 which was 94% of the maximum predicted heart rate. Maximum blood pressure was 189/86 millimeters of mercury. Total exercise time was 7 minutes and 15 seconds. Maximum METs achieved was 10.2. The reason for ending the test was completion of protocol. The patient complained of shortness of breath during the stress test, which then resolved at the end of the test. ELECTROCARDIOGRAM: BASELINE: Showed sinus rhythm, normal axis, no significant ST-T changes at the baseline noted. [] EXERCISE: At the peak exercise level, [] No significant ST-T changes suggestive of ischemia noted. PVCs seen [] RECOVERY: During the recovery period, heart rate dropped appropriately. No significant ST-T changes in the recovery suggestive of ischemia noted. [] CONCLUSION: 1. Exercise capacity is good. 2. Heart rate response was appropriate 3. Blood pressure response was appropriate 4. Symptoms not suggestive of ischemia. 5. Electrocardiogram portion of the stress test was not suggestive of ischemia. 6. Nuclear scan will be documented separately. Electronically Signed On 12-28-2024 10:17:16 HEAD TENNIS PROFESSIONAL by Bertin Clifford M.D. [id number]
--- NOTE | 2024-12-26 07:19 | NMCV_ITS ---
NM dayday perf SPECT r/s* [id number] Landon Guevara Age: 84 Gender: M : 1940 Exam Date: 12/26/2024 07:19 Ordering Phys: Connie Macias MD ([email or web address]) Technologist: NEHA Mckinney Exam Location: [facility] Indications: cp STRESS TEST Please see separate stress test report in [facility] for full findings IMAGE PROTOCOL Rest/Stress 1 Exercise Day Radiopharmaceutical Dose (mCi) Administration Site Administered by Rest: Tc-99m 10.5 IV NEHA Mckinney Sestamibi Stress:Tc-99m 32.9 IV Maria De Jesus Cortes, CABINET BUILDER Sestamibi Rest: 26-Dec-2024 60 Discovery 630 Stress: 26-Dec-2024 15 Discovery 630 Radiopharmaceutical was injected at 85 % maximum heart rate. Supine position only as patient was unable to lay prone. SPECT RESULTS Technical Quality: Good Raw Data Analysis: Normal Image Corrections: No attenuation or motion correction applied Summed Stress Score: 3 Summed Rest Score: 1 Summed Difference Score: 2 PERFUSION FINDINGS Medium sized area of mild to moderate reversibility noted in basal to mid inferior and inferolateral wall suggestive of possible lesion in the circumflex or dominant RCA territory. FUNCTIONAL RESULTS (calculated via Gated SPECT) Stress Image LV EF (%): 61 Stress EDV (mL):85 TID: 0.85 Stress ESV (mL):33 FUNCTIONAL FINDINGS: There appeared to be basal to mid inferior wall hypokinesis IMPRESSIONS Medium sized area of moderate ischemia noted in basal to mid inferior and inferolateral wall suggestive of possible lesion in either dominant circumflex or RCA territory. Connie Macias MD (Electronically Signed) Final Date: 26 December 2024 15:19 S
[2024-12-26 07:20] VITALS: BMI 23.9
[2024-12-26 09:27] VITALS: BP 126/64; PULSE 84
== END 2024-12-26 07:04 | disposition home or self-care (01) ==
PROVIDERS: PCP Electrodiagnostic Medicine; Visit Provider Internal Medicine Cardiovascular Disease
DX: R07.9 Chest pain, unspecified (principal); R93.1 Abnormal findings on diagnostic imaging of heart and coronary circulation; I99.8 Other disorder of circulatory system
CPT/HCPCS: 36415; 78452; 93017; 93306; A9500

== ENCOUNTER 2025-01-22 11:03 | Observation (INO) | payer OTHER, MEDICARE, SELFPAY ==
--- NOTE | 2025-01-21 08:15 | PC.NURSE ---
called and left message with patient to call back for pre cath instructions.
[2025-01-22] VITALS (27 sets, daily range): BP systolic 118–169; BP diastolic 65–106; PULSE 48–60; RESP 10–21; TEMP 36.3–36.9; O2SAT 94–100; BMI 24.5
[2025-01-22 06:25] LABS: Basophils % 0.7 %; Eosinophils # 0.2 10^3/uL (0.0-0.8); Eosinophils % 3.8 %; Hematocrit 43.4 % (37-53); Lymphocytes # 1.7 10^3/uL (0.8-4.8); Lymphocytes % 29.7 %; Mean Corpuscular HGB Conc 33.9 g/dL (30-55); Mean Corpuscular Hemoglobin 29.5 pg (27-33); Mean Platelet Volume 9.1 fL (7.4-10.4); Monocytes # 0.6 10^3/uL (0.2-0.9); Monocytes % 9.6 %; Neutrophils # 3.26 10^3/uL (1.8-7.7); Nucleated Red Blood Cells % 0 %; Platelet Count 182 10^3/cmm (157-399); Red Blood Count 4.99 10^6/uL (3.85-5.65); Red Cell Distribution Width 13.2 % (12.1-15.1); White Blood Count 5.82 10^3/uL (3.29-11.43)
[2025-01-22 06:40] LABS: Anion Gap 14.3 (5-19); Blood Urea Nitrogen 32 mg/dL (8-23); Calcium 8.8 mg/dL (8.5-10.5); Carbon Dioxide 23 mmol/L (22-29); Chloride 106 mmol/L (98-107); Creatinine Clr Calc Pharmacy 54.4038; Glucose 102 mg/dL (65-115); Osmolality Calculated 295 mOsm/kg (285-295); Potassium 4.3 mmol/L (3.5-5.1); Sodium 139 mmol/L (136-145)
[2025-01-22] MEDS: diphenhydrAMINE 50 mg Capsule PO (06:41)
--- NOTE | 2025-01-22 08:18 | W.PM.OPSFHP ---
Same Day Surgery H&P Indication for Procedure/HPI DATE OF PROCEDURE: January 22, 2025 CHIEF COMPLAINT/INDICATIONFOR SURGICAL PROCEDURE: Chest pain LV dysfunction Abnormal stress test Preop clearance PREOP DIAGNOSIS: Abnormal stress test, chest pain, preop PLANNED PROCEDURE: Operation Date: 01/22/25 07:00 Proposed Procedures p Cardiac Catheterization - [facility] w/wo LV & Coros(Left) - Connie Macias MD 85-year-old male past medical history significant for nonobstructive coronary artery disease proven with angiogram and 2021, LV dysfunction presented with chest pain worsening of shortness of breath and for preop clearance, patient underwent stress test which was positive suggestive of moderate ischemia, it is the reason patient is here for left heart catheterization. Please review my note from 03 December 2024 for more details. Medications/Allergies* Home Medications ?Medication ?Instructions ?Recorded ?Confirmed ?Type finasteride 5 mg tablet 5 mg PO BEDTIME 10/20/20 01/22/25 History omega 2-kjy-xld-fish oil 1,200 mg 1,200 cap PO DAILY 10/20/20 01/22/25 History (144 mg-216 mg) capsule (Fish Oil) pravastatin 80 mg tablet 80 mg PO DAILY 10/20/20 01/22/25 History tamsulosin 0.4 mg capsule (Flomax) 0.4 mg PO BID 10/20/20 01/22/25 History mdimlhhw-nq-gffig 300 mcg-K 60 1 tab PO DAILY 01/11/23 01/22/25 History mcg-lycop 600 mcg-lutein 300 mcg tablet (Centrum Silver Ultra Men's) Allergies/Adverse Reactions Allergy/AdvReac Type Severity Reaction Status Date / Time niacin Allergy Unknown Verified 12/26/24 08:06 Current Medications: Generic Name Dose Route Start Last Admin Trade Name Freq PRN Reason Stop Dose Admin Sodium Chloride 1,000 mls @ 50 mls/hr 01/22/25 06:00 01/22/25 06:41 Sodium Chloride 0.9% IV 01/23/25 01:59 Not Given .Q20H ONE Pertinent History/Comorbid Conditions* Medical History (Updated 12/28/24 @ 00:36 by Connie Macias MD) LV dysfunction Chest pain Dizziness BPH w urinary obs/LUTS Arthritis Family history of prostate problems Surgical History (Updated 06/09/21 @ 09:45 by Bel Lee APRN) History of cataract extraction History of hernia surgery Family History (Updated 06/09/21 @ 08:31 by Roro Angulo LPN) Father, AT 56 Mother, AT 93 CAD (coronary artery disease) Heart disease Mother Cancer Social History Smoking and tobacco/nicotine status: never used tobacco/nicotine Alcohol intake: current Alcohol intake frequency: holidays/special occasions only Substance/Drug Use: never Marital status: Current occupational status: retired Pertinent Exam Findings alert, oriented x 3, clear to auscultation bilaterally, regular rate & rhythm and operative site marked GENERAL: Patient is alert, awake and oriented x3. HEART: Regular S1 and S2. No murmur, rub or gallop. LUNGS: Clear to auscultate bilaterally. CENTRAL NERVOUS SYSTEM: Grossly nonfocal. EXTREMITIES: Lower extremities with out edema bilaterally. Conscious Sedation Assessment PATIENT ASSESSED PRIOR TO SEDATION, WITH NO CHANGE NOTED: Yes AIRWAY EVAL/ANESTHESIA PLAN: ASA II, Risks, benefits & alternatives of sedation and/or procedure discussed and Patient agrees to continue as planned Recommendations Surgery/Procedure today Coding Level of Care Code Acute Code for Chg Fwd
--- NOTE | 2025-01-22 10:14 | PM.PROC ---
Procedure Note: Date of procedure: 01/22/25 Pre-procedure diagnosis: Chest pain/abnormal stress test Post-procedure diagnosis: same Procedure: Left heart cath was performed, LAD has proximal high-grade calcified stenosis, diagonal branch has proximal moderate stenosis. Left circumflex left main and RCA has luminal irregularities 2 wire technique was adopted. Diagonal branch was pretreated with balloon angioplasty. intravascular lithotripsy was performed to the proximal LAD lesion. IVUS guided stent placement postdilated with noncompliant balloon was performed.. Excellent angiographic result with ALEXANDRU-3 flow was achieved. Plan Plavix load 600 mg now followed by 75 mg from tomorrow every day Continue aspirin statin beta-rosana Continue Plavix from tomorrow as well for 1 year Continue Aggrastat drip for 1 hour after loading with 600 mg of Plavix. Radial band as per protocol Stop Aggrastat drip after 1 hour of Plavix load Possible discharge tomorrow Coding Level of Care Code Acute Code for Chg Fwd
[2025-01-22] MEDS: sodium chloride 0.9% 1,000 ML 100 ML IV ×2 (11:24→20:03)
[2025-01-22] MEDS: fentaNYL 50 mcg/mL INJ 2mL 25 MCG IVP (17:52)
--- NOTE | 2025-01-22 17:56 | PC.NURSE ---
1255 - 3ml air removed from right radial tr band 1315 - 2ml air removed from right radial tr band 1340 - 2ml air removed from right radial tr band 1415 - 3ml air removed from right radial tr band 1440 - 2ml air removed from right radial tr band 1512 - 2 ml air removed from right radial tr band 1535 - 3 ml air removed from right radial tr band 1600 - no bleeding or hematoma noted to r arm, tr band removed, bandaid applied. 1735 - patient called this nurse to room. large hematoma noted to right radial tr band removal site with bruising down right hand. TR band replaced on right wrist. laborer sawmill nurses to bedside to evaluate. Dr. Hart notified. Dr Hart to bedside, TR band removed per Dr. hart, 25mcg fentanyl given IV x 1 dose as ordered, Dr. hart mashed out hematoma, pressure dressing applied.
[2025-01-22 18:12] LABS: Basophils % 0.7 %; Eosinophils # 0.2 10^3/uL (0.0-0.8); Eosinophils % 2.9 %; Hematocrit 40.9 % (37-53); Lymphocytes # 1.8 10^3/uL (0.8-4.8); Mean Corpuscular HGB Conc 33.5 g/dL (30-55); Mean Corpuscular Hemoglobin 29.1 pg (27-33); Mean Corpuscular Volume 86.8 fl (82-101); Mean Platelet Volume 9.1 fL (7.4-10.4); Monocytes # 0.6 10^3/uL (0.2-0.9); Monocytes % 9.3 %; Neutrophils # 3.38 10^3/uL (1.8-7.7); Neutrophils % 56.9 %; Nucleated Red Blood Cells % 0 %; Platelet Count 169 10^3/cmm (157-399); Red Blood Count 4.71 10^6/uL (3.85-5.65); Red Cell Distribution Width 13.2 % (12.1-15.1); White Blood Count 5.93 10^3/uL (3.29-11.43)
[2025-01-22] MEDS: atorvastatin 40 mg Tablet PO (20:03)
[2025-01-23] VITALS (16 sets, daily range): BP systolic 125–178; BP diastolic 64–84; PULSE 54–96; RESP 11–22; TEMP 36.4–36.9; O2SAT 96–98; BMI 24.8
--- NOTE | 2025-01-23 00:43 | ECG_ITS ---
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 Measurements Intervals [place] Rate: 74 P: 72 FL: 160 QRS: -1 QRSD: 82 T: 31 QT: 395 QTc: 440 Interpretive Statements SINUS RHYTHM Compared to ECG 12/28/2022 12:47:00 Sinus bradycardia no longer present Electronically Signed On 01-24-2025 08:19:06 CHINCHILLA MACHINE OPERATOR by Bertin Clifford M.D. [id number] [id number]
[2025-01-23] MEDS: losartan 50 mg Tablet PO ×2 (01:03→08:46)
[2025-01-23] MEDS: finasteride 5 mg Tablet PO (01:03)
[2025-01-23] MEDS: nitroglycerin 1 gm/inch oint Pkt 1 INCH TOPICAL (01:49)
[2025-01-23] MEDS: morphine 4 mg/mL SDV 1 mL 2 MG IVP (01:50)
[2025-01-23] MEDS: hyDRALAzine 20 mg/mL INJ 1 mL 10 MG IVP (02:56)
[2025-01-23 04:36] LABS: Basophils % 0.6 %; Eosinophils # 0.2 10^3/uL (0.0-0.8); Hematocrit 42.9 % (37-53); Lymphocytes # 1.4 10^3/uL (0.8-4.8); Lymphocytes % 22.4 %; Mean Corpuscular HGB Conc 33.3 g/dL (30-55); Mean Corpuscular Hemoglobin 29.6 pg (27-33); Mean Corpuscular Volume 88.8 fl (82-101); Mean Platelet Volume 9.3 fL (7.4-10.4); Monocytes # 0.6 10^3/uL (0.2-0.9); Monocytes % 8.5 %; Neutrophils % 65.2 %; Nucleated Red Blood Cells % 0 %; Platelet Count 173 10^3/cmm (157-399); Red Blood Count 4.83 10^6/uL (3.85-5.65); Red Cell Distribution Width 13.2 % (12.1-15.1); White Blood Count 6.44 10^3/uL (3.29-11.43)
[2025-01-23 05:08] LABS: Anion Gap 13.2 (5-19); Blood Urea Nitrogen 23 mg/dL (8-23); Calcium 8.7 mg/dL (8.5-10.5); Carbon Dioxide 23 mmol/L (22-29); Chloride 106 mmol/L (98-107); Creatinine Clr Calc Pharmacy 54.6762; Glucose 92 mg/dL (65-115); Osmolality Calculated 289 mOsm/kg (285-295); Potassium 4.2 mmol/L (3.5-5.1); Sodium 138 mmol/L (136-145)
[2025-01-23] MEDS: aspirin 81 mg EC Tablet PO (08:44)
[2025-01-23] MEDS: clopidogrel 75 mg Tablet PO (08:45)
[2025-01-23] MEDS: tamsulosin 0.4 mg Capsule PO (08:46)
[2025-01-23] MEDS: metoprolol succinate ER (24 HR) 25 mg Tablet 12.5 MG PO (08:46)
--- NOTE | 2025-01-23 11:49 | PC.NURSE ---
Discharged to home with via private car. Discharge instructions given, cardiac stoplight given, post heart cath, post stent placement, and cath site care instructions given. Stent card given to patient and with instructions to keep stent card in wallet at all times. Instructions on New medication plavix and asprin given and notified that prescriptions sent to [facility]. All questions answered.
--- NOTE | 2025-01-23 12:07 | PC.SOCIAL ---
IMM Updated Updated pt on IMM. No questions voiced. Provided pt a copy. Initialed, dated, & timed a copy & placed in chart.
--- NOTE | 2025-01-23 13:54 | PM.DCS ---
Discharge Providers Date of Admission: 01/22/25 11:03 Date of Discharge: January 23, 2025 Attending Provider at Admission: Connie Macias MD Attending Provider at Discharge: Connie Macias MD Primary Care Provider: Kalpesh Rush DO Reason for Visit Reason for Visit: R94.39 Brief History: 85-year-old male past medical history significant for nonobstructive coronary artery disease proven with angiogram and 2021, LV dysfunction presented with chest pain worsening of shortness of breath and for preop clearance, patient underwent stress test which was positive suggestive of moderate ischemia, it is the reason patient is here for left heart catheterization. Please review my note from 03 December 2024 for more details. Hospital Course Hospital Course Left heart cath was performed, LAD has proximal high-grade calcified stenosis, diagonal branch has proximal moderate stenosis. Left circumflex left main and RCA has luminal irregularities 2 wire technique was adopted. Diagonal branch was pretreated with balloon angioplasty. intravascular lithotripsy was performed to the proximal LAD lesion. IVUS guided stent placement postdilated with noncompliant balloon was performed.. Excellent angiographic result with ALEXANDRU-3 flow was achieved. Physical Exam Narrative: General: No apparent distress, healthy appearing, well nourished HENMT: normoceophalic Muskuloskeletal: Full ROM Lymphatic: no lymphedema noted Respiratory: Normal respiratory effort, clear to auscultation bilaterally throughout all lung gardner, no use of accessory muscles Cardio: No JVD, regular rate, regular rhythm, S1 S2 normal, no murmurs, peripheral pulses 2+ radial palpated bilaterally GI: Normal to inspection, nondistended Extremities: Full ROM, normal, normal capillary refill, no cyanosis or edema Neuro: Alert and oriented x4, no focal motor deficits Psych: Affect normal, denies suicidal ideation, mental status grossly normal Skin: Right cath site w/o hematoma but moderate area of bruising present, no active bleeding, no tenderness Discharge Data Studies Completed and Pending Pending at discharge Category Date Time Status OIL DISPENSER request for service Routine Exams 01/22/25 06:00 Taken Laboratory Results WBC 6.44 10^3/uL (3.29-11.43) 01/23/25 03:36 RBC 4.83 10^6/uL (3.85-5.65) 01/23/25 03:36 Hgb 14.30 g/dL (11.27-16.99) 01/23/25 03:36 Hct 42.9 % (37-53) 01/23/25 03:36 MCV 88.8 fl (82-101) 01/23/25 03:36 MCH 29.6 pg (27-33) 01/23/25 03:36 MCHC 33.3 g/dL (30-55) 01/23/25 03:36 RDW 13.2 % (12.1-15.1) 01/23/25 03:36 Plt Count 173 10^3/cmm (157-399) 01/23/25 03:36 MPV 9.3 fL (7.4-10.4) 01/23/25 03:36 Neut % (Auto) 65.2 % 01/23/25 03:36 Lymph % (Auto) 22.4 % 01/23/25 03:36 [place] % (Auto) 8.5 % 01/23/25 03:36 Eos % (Auto) 3.0 % 01/23/25 03:36 Baso % (Auto) 0.6 % 01/23/25 03:36 Neut # (Auto) 4.20 10^3/uL (1.8-7.7) 01/23/25 03:36 Lymph # (Auto) 1.4 10^3/uL (0.8-4.8) 01/23/25 03:36 [place] # (Auto) 0.6 10^3/uL (0.2-0.9) 01/23/25 03:36 Eos # (Auto) 0.2 10^3/uL (0.0-0.8) 01/23/25 03:36 Baso # (Auto) 0.0 10^3/uL (0.0-0.1) 01/23/25 03:36 Nucleated RBC % (auto) 0 % 01/23/25 03:36 Nucleated RBCs # 0.0 /100WBC 01/23/25 03:36 Sodium 138 mmol/L (136-145) 01/23/25 03:36 Potassium 4.2 mmol/L (3.5-5.1) 01/23/25 03:36 Chloride 106 mmol/L (98-107) 01/23/25 03:36 Carbon Dioxide 23 mmol/L (22-29) 01/23/25 03:36 Anion Gap 13.2 (5-19) 01/23/25 03:36 BUN 23 mg/dL (8-23) 01/23/25 03:36 Creatinine 1.0 mg/dL (0.7-1.2) 01/23/25 03:36 GFR Calculation Not Reportable 01/23/25 03:36 Glucose 92 mg/dL (65-115) 01/23/25 03:36 Calculated Osmolality 289 mOsm/kg (285-295) 01/23/25 03:36 Calcium 8.7 mg/dL (8.5-10.5) 01/23/25 03:36 Procedures Performed Left heart cath was performed, LAD has proximal high-grade calcified stenosis, diagonal branch has proximal moderate stenosis. Left circumflex left main and RCA has luminal irregularities 2 wire technique was adopted. Diagonal branch was pretreated with balloon angioplasty. intravascular lithotripsy was performed to the proximal LAD lesion. IVUS guided stent placement postdilated with noncompliant balloon was performed.. Excellent angiographic result with ALEXANDRU-3 flow was achieved. Vitals Last Vital Signs Temp 98.0 F 01/23/25 11:11 Pulse 67 01/23/25 11:11 Resp 14 01/23/25 11:11 BP 136/72 01/23/25 11:11 Pulse Ox 97 01/23/25 11:11 O2 Del Method Room Air 01/23/25 08:00 Discharge Plan Discharge Patient Disposition: Home Condition: Stable Prescriptions: New losartan 50 mg Tablet 50 mg PO DAILY Qty: 30 0RF clopidogrel 75 mg Tablet 75 mg PO DAILY Qty: 30 0RF aspirin 81 mg Tablet,Delayed Release (Dr/Ec) 81 mg PO DAILY Qty: 30 0RF Continued Centrum Silver Ultra Men's 300-600-300 mcg tablet 1 tab PO DAILY metoprolol succinate 25 mg tablet extended release 24 hr 12.5 mg PO DAILY Qty: 45 3RF isosorbide mononitrate 30 mg tablet extended release 24 hr 30 mg PO DAILY Qty: 90 3RF nitroglycerin 0.4 mg tablet, sublingual 0.4 mg sublingual Q5M PRN (Reason: chest pain) Qty: 25 2RF Rx Instructions: do not exceed 3 doses per episode pravastatin 80 mg Tablet 80 mg PO DAILY tamsulosin [Flomax] 0.4 mg Capsule 0.4 mg PO BID finasteride 5 mg Tablet 5 mg PO BEDTIME omega 8-anv-pnm-fish oil [Fish Oil] 1,200 (144-216) mg Capsule 1,200 cap PO DAILY Rx Instructions: pt brought in med list with this medication on it-pts va list has 1 cap po bid Discontinued aspirin [Adult Low Dose Aspirin] 81 mg tablet,delayed release (DR/EC) 81 mg PO DAILY Qty: 30 0RF Discharge Orders: Discharge Order (Routine); Ordered 01/23/25 Ordered By: Emi Valentine Referrals: Emi Valentine, COMPENSATION CONSULTANT [Nurse Practitioner] - 02/05/25 2:00 pm (This is follow up with [facility] following inpatient cardiac cath.angiogram coronary stent.) Maggie Bah FNP [Referring] - 01/28/25 9:00 am (This appointment confirmed for January 28, 2025Sunday ,at time of 09:00 am ) Discharge Diet: Advance as tolerated and Cardiac Discharge Activity: Increase activity as tolerated Patient Instructions: Aspirin (By mouth), Losartan (By mouth), Clopidogrel (By mouth) (Plavix), Coronary Angioplasty (DC), Coronary Intravascular Stent Placement (DC), Chest Pain Stoplight, Opioid Safety, Post Angiogram Home Care Instructions Activity Restrictions/Additional Instructions: Discussed with patient no heavy lifting more than a gallon of milk as well as going up or down steps for 3 days. No driving for 3 days. Monitor for and report signs or symptoms of bleeding. Monitor for and report s/s of infection such as fever 101 or greater, swelling, redness or pain to the wrist. Plan of Treatment: Continue aspirin statin beta-rosana Continue Plavix from tomorrow as well for 1 year F/U in the clinic in 7-10 days Discharge Attestations Time Spent in Discharge Care*: less than 30 min Quality Metrics Clinical Quality Measures [ No reported AMI, CVA or VTE this stay] Coding Level of Care Code Acute Code for Chg [place]
== END 2025-01-23 11:50 | disposition home or self-care (01) ==
LOC: ICU 11:16
PROVIDERS: Admitting Provider Internal Medicine Cardiovascular Disease; PCP Electrodiagnostic Medicine; Visit Provider Internal Medicine Cardiovascular Disease
DX: I25.10 Atherosclerotic heart disease of native coronary artery without angina pectoris (principal)
CPT/HCPCS: 36415; 80048; 85025; 85347; 92921; 92928; 92972; 92978; 93005; 93458; 96374; 96375; 99152; 99153; C1725; C1753; C1761; C1769; C1874; C1887; C1894; C9600; C9765; G0378; J0360; J1644; J2250; J2270; J3010; J3490; J7030; Q0163; Q9967

== ENCOUNTER → 2025-01-29 15:17 | Outpatient (BNVA) | payer OTHER, MEDICARE, SELFPAY | PROVIDERS: PCP Electrodiagnostic Medicine; Visit Provider Nurse Practitioner Family | DX: L57.8 Other skin changes due to chronic exposure to nonionizing radiation (principal); L81.4 Other melanin hyperpigmentation; D22.39 Melanocytic nevi of other parts of face; L82.1 Other seborrheic keratosis; R23.3 Spontaneous ecchymoses; L82.0 Inflamed seborrheic keratosis; R58 Hemorrhage, not elsewhere classified; R20.8 Other disturbances of skin sensation; L53.8 Other specified erythematous conditions; Z78.9 Other specified health status; L29.89 Other pruritus; L57.0 Actinic keratosis | CPT/HCPCS: 17000; 17110; 99213 ==

== ENCOUNTER → 2025-02-12 13:54 | Outpatient (BNVA) | payer OTHER, MEDICARE, SELFPAY | PROVIDERS: PCP Electrodiagnostic Medicine; Visit Provider Nurse Practitioner Family | DX: Z09 Encounter for follow-up examination after completed treatment for conditions other than malignant neoplasm (principal); E78.2 Mixed hyperlipidemia; I51.9 Heart disease, unspecified; I25.10 Atherosclerotic heart disease of native coronary artery without angina pectoris | CPT/HCPCS: 99213 ==

== ENCOUNTER → 2025-04-15 09:26 | Outpatient (BNVA) | payer OTHER, SELFPAY | PROVIDERS: PCP Electrodiagnostic Medicine; Visit Provider Internal Medicine Cardiovascular Disease | DX: I25.10 Atherosclerotic heart disease of native coronary artery without angina pectoris (principal); E78.2 Mixed hyperlipidemia; R42 Dizziness and giddiness; I50.1 Left ventricular failure, unspecified; Z79.01 Long term (current) use of anticoagulants; Z79.82 Long term (current) use of aspirin; R00.2 Palpitations | CPT/HCPCS: 93005; 99214 ==

== ENCOUNTER → 2025-05-08 09:12 | Outpatient (BNVA) | payer OTHER, SELFPAY | PROVIDERS: PCP Electrodiagnostic Medicine; Visit Provider Nurse Practitioner Family | DX: I25.10 Atherosclerotic heart disease of native coronary artery without angina pectoris (principal); E78.2 Mixed hyperlipidemia; I51.9 Heart disease, unspecified; R42 Dizziness and giddiness | CPT/HCPCS: 36415; 80048; 80053; 83880; 99214 ==

== ENCOUNTER → 2025-06-02 10:37 | Outpatient (BNVA) | payer OTHER, SELFPAY | PROVIDERS: PCP Electrodiagnostic Medicine; Visit Provider Internal Medicine Cardiovascular Disease | DX: I25.118 Atherosclerotic heart disease of native coronary artery with other forms of angina pectoris (principal); I10 Essential (primary) hypertension; E78.5 Hyperlipidemia, unspecified; Z79.02 Long term (current) use of antithrombotics/antiplatelets; Z79.82 Long term (current) use of aspirin; Z95.5 Presence of coronary angioplasty implant and graft | CPT/HCPCS: 99214 ==

== ENCOUNTER 2025-06-12 18:28 | Emergency (ER) | payer OTHER, MEDICARE, SELFPAY ==
--- OUTSIDE RECORDS SUMMARY | 2025-06-12 13:32 | XMS_ITS | Continuity of Care Document ---
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 It does not include entries that were removed or entered in error. 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) Active Condition [facility] Bradycardia Active Condition [facility] CAD - Coronary Artery Disease (SCT 80590545) Active Condition [facility] Hearing Loss (SCT 18034551) Active [place] [facility] Hyperlipidemia (SCT 79504016) Active Condition [facility] Hypothyroidism (SCT 37508926) Active Condition [facility] Multiple nodules of lung Active [place] [facility] OA - Osteoarthritis (SCT 397394615) Active Condition [facility] Pain of left shoulder joint Active Condition [facility] Skin lesion Active Condition [facility] Vertigo Active Condition [facility] Vitamin D Deficiency (SCT 2664347) Active Condition [facility] Diagnosis: ICD-10-CM Z13.9 Encounter for screening, unspecified Active Diagnosis [place] [facility] Diagnosis: ICD-10-CM Z13.5 Encounter for screening for eye and ear disorders Active Diagnosis [facility] Diagnosis: ICD-10-CM Z00.00 Encntr for general adult medical exam w/o abnormal findings Active Diagnosis [facility] Diagnosis: ICD-10-CM 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, 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, recurrent Active Diagnosis [facility] Diagnosis: ICD-10-CM M19.90 Unspecified osteoarthritis, unspecified site Active Diagnosis [facility] Diagnosis: ICD-10-CM R11.0 Nausea Active Diagnosis [facility] Diagnosis: ICD-10-CM Z23 Encounter for immunization Active Diagnosis [facility] Diagnosis: ICD-10-CM Z46.1 Encounter for fitting and adjustment of hearing aid Active Diagnosis [facility] [facility] [facility] Diagnosis: ICD-10-CM H90.3 Sensorineural hearing loss, bilateral Active Diagnosis [facility] [facility] Diagnosis: ICD-10-CM L98.9 Disorder of the skin and subcutaneous tissue, unspecified Active Diagnosis [facility] Diagnosis: ICD-10-CM H91.90 Unspecified hearing loss, unspecified ear Active Diagnosis [facility] Medications Combined list of outpatient medications from Department of Defense and Veterans Affairs facilities.Medications provided include 1) outpatient medications from the last 15 months, and 2) patient-reported medications. Medication Details Route Status Patient Instructions Prescription Expires Prescription Number Last Dispense Date Ordering Provider Order Date Order Qty Source CLOPIDOGREL BISULFATE 75MG TAB TAKE ONE TABLET BY MOUTH ONCE A DAY FOR ACUTE CORONARY SYNDROME ORAL ACTIVE 01/29/2026 [id number] 5 Prakash MOYER [address] [place] [address] FINASTERIDE 5MG TAB TAKE ONE TABLET BY MOUTH ONCE A DAY FOR PROSTATE . SWALLOW WHOLE, DO NOT CRUSH, SPLIT, OR CHEW. ORAL ACTIVE 07/30/2025 [id number] 5 Prakash MOYER R [address] [place] [address] FINASTERIDE 5MG TAB TAKE ONE TABLET BY MOUTH ONCE A DAY FOR PROSTATE . SWALLOW WHOLE, DO NOT CRUSH, SPLIT, OR CHEW. ORAL DISCONT INUED 07/13/2024 [id number] 4 Prakash MOYER R [address] [place] [address] ISOSORBIDE MONONITRATE 30MG TAB,SA TAKE ONE TABLET BY MOUTH ONCE A DAY FOR CHEST PAIN TAKE ON EMPTY STOMACH. SWALLOW WHOLE. DO NOT CRUSH OR CHEW. ORAL ACTIVE 12/04/2025 [id number] 5 AIMEE VANESSA MMAD F [address] [place], [place] [address] 50MG TAB TAKE ONE TABLET BY MOUTH ONCE A DAY FOR HIGH BLOOD PRESSURE ORAL ACTIVE 01/29/2026 [id number] 5 Prakash MOYER [address] [place] [address] METOPROLOL SUCCINATE 25MG TAB,SA TAKE ONE-HALF TABLET BY MOUTH ONCE A DAY FOR HIGH BLOOD PRESSURE SWALLOW WHOLE, DO NOT CRUSH OR CHEW (TABLETS MAY BE CUT IN HALF). ORAL ACTIVE 12/04/2025 [id number] 5 AMIEE VANESSA MMAD F 2024 45 [place] [facility] NITROGLYCER IN 0.4MG TAB,SUBLING UAL DISSOLVE ONE TABLET UNDER THE TONGUE EVERY 5 MINUTES FOR CHEST PAIN NEEDED ; IF NO IMPROVEM ENT AFTER FIRST DOSE CALL 9-1-1. MAY TAKE 2 ADDITION AL DOSES, 5 MINUTES APART. TAKE WHILE SITTING. SUBLIN GUAL ACTIVE 12/04/2025 [id number] 5 AIMEE VANESSA MMAD F 2024 100 [place] [facility] PRAVASTATIN NA 80MG TAB TAKE ONE TABLET BY MOUTH EVERY EVENING TO LOWER CHOLESTE ROL ORAL ACTIVE 10/29/2025 [id number] 5 Prakash MOYER R 2023 90 [facility] PRAVASTATIN NA 80MG TAB TAKE ONE TABLET BY MOUTH EVERY EVENING TO LOWER CHOLESTE ROL ORAL DISCONT INUED 10/15/2024 [id number] 4 Prakash MOYER R [address] [place] [address] [facility] TAMSULOSIN HCL 0.4MG CAP TAKE ONE CAPSULE BY MOUTH TWICE A DAY APPROXIM ATELY 30 MINUTES AFTER THE SAME MEAL EACH DAY (FOR PROSTATE ) ORAL ACTIVE 07/30/2025 [id number] 5 Prakash MOYER R [address] [place] [address] [facility] TAMSULOSIN HCL 0.4MG CAP TAKE ONE CAPSULE BY MOUTH TWICE A DAY APPROXIM ATELY 30 MINUTES AFTER THE SAME MEAL EACH DAY (FOR PROSTATE ) ORAL DISCONT INUED 07/13/2024 [id number] 4 Prakash MOYER R [address] [place] [address] Allergies, Adverse Reactions, Alerts Combined list of allergies from Department of Defense and Veterans Affairs facilities. It does not include entries that were removed or entered in error. Substance Category Reaction Severity Reaction type Status Date Reported Comments Source NIACIN Propensity to adverse reactions to drug (finding) Eruption active 04/21/2020 [facility] Immunizations Combined list of available immunizations from the Department of Defense and Veterans Affairs facilities. 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 Source INFLUENZA, SPLIT VIRUS, TRIVALENT, PF 2023 OLIVIA AWAD LEFT DELTO ID [id number] 140 complet ed [facility] COVID-19 (MODERNA), MRNA, LNP-S, PF, 50 MCG/0.5 ML (AGES 12+ YEARS) 7 2023 312 complet ed HISTORICA L INFORMATI ON - FROM OTHER [facility] COVID-19 (MODERNA), MRNA, LNP-S, PF, 50 MCG/0.5 ML (AGES 12+ YEARS) 1 2022 EMY RAMIRES RIGHT DELTO ID [id number] 312 complet ed [facility] INFLUENZA, HIGH-DOSE, QUADRIVALENT 2022 YADIRA GARCIA LEFT DELTO ID [id number] A 197 complet ed [facility] COVID-19 (MODERNA), MRNA, LNP-S, BIVALENT BOOSTER, PF, 50 MCG/0.5 ML OR 25MCG/0.25 ML DOSE 1 2022 OLIVIA AWAD LEFT DELTO ID [id number] 229 complet ed [facility] PNEUMOCOCCAL CONJUGATE PCV20, POLYSACCHARID E [id number] CONJUGATE, ADJUVANT, PF 2022 OLIVIA AWAD RIGHT DELTO ID [id number] 216 complet ed [facility] COVID-19 (MODERNA), MRNA, LNP-S, BIVALENT BOOSTER, PF, 50 MCG/0.5 ML OR 25MCG/0.25 ML DOSE 1 2021 229 complet ed MOD; [id number]; 3 [facility] INFLUENZA, INJECTABLE, QUADRIVALENT, PRESERVATIVE FREE 2021 150 complet ed [facility] COVID-19 (MODERNA), MRNA, LNP-S, PF, 100 MCG/0.5ML DOSE OR 50 MCG/0.25ML DOSE 3 2021 207 complet ed [facility] COVID-19 (MODERNA), MRNA, LNP-S, PF, 100 MCG/0.5ML DOSE OR 50 MCG/0.25ML DOSE 3 2020 207 complet ed [facility] INFLUENZA, INJECTABLE, QUADRIVALENT, PRESERVATIVE FREE 2020 150 complet ed [facility] ZOSTER RECOMBINANT 2 2020 187 complet [facility] TDAP 2020 115 complet [facility] COVID-19 (MODERNA), MRNA, LNP-S, PF, 100 MCG/0.5 ML DOSE 2 2020 207 complet ed [facility] COVID-19 (MODERNA), MRNA, LNP-S, PF, 100 MCG/0.5 ML DOSE 1 2020 207 complet ed [facility] ZOSTER RECOMBINANT 1 2020 187 complet [facility] INFLUENZA, INJECTABLE, QUADRIVALENT, PRESERVATIVE FREE 2019 150 complet [facility] PNEUMOCOCCAL POLYSACCHARID E [id number] 2019 33 complet [facility] INFLUENZA, HIGH DOSE SEASONAL 5 2017 135 complet ed HISTORICA L INFORMATI ON - FROM OTHER REGISTRY, [facility] INFLUENZA, TRIVALENT, ADJUVANTED 4 2016 168 complet ed HISTORICA L INFORMATI ON - FROM OTHER REGISTRY, [facility] INFLUENZA, HIGH DOSE SEASONAL 3 2015 135 complet ed HISTORICA L INFORMATI ON - FROM OTHER REGISTRY, [facility] INFLUENZA, HIGH DOSE SEASONAL 2 2014 135 complet ed HISTORICA L INFORMATI ON - FROM OTHER [facility] INFLUENZA, SEASONAL, INJECTABLE 1 2012 141 complet ed HISTORICA L INFORMATI ON - FROM OTHER REGISTRY, [facility] Results Combined list of recent chemistry, hematology and other laboratory results from Department of Defense and Veterans Affairs, ranging from 15 months to all on record, depending upon the facility. Order Name Results Value Reference Range Date Interpretation Specimen Comments Source HGA1C HEMOGLOBIN A1C/HEMOGLO BIN.TOTAL IN BLOOD 5.9 4.0 - 6.0 01/26 Specimen Type: BLOOD No comment entered. Ordering Provider: Prakash MOYER Report Released Date/Time : Jan 26, 2025 10:13 AM Reporting Lab: [place] [facility] [address] [place] [address] Performin g Lab: [place] [facility] [address] [place] [address] [facility] CHOLESTERO L PANEL (PB) CHOLESTEROL [MASS/VOLUM E] IN SERUM OR PLASMA 152 mg/dL 0 - 200 01/26 Specimen Type: PLASMA No comment entered. Ordering Provider: Prakash MOYER Report Released Date/Time : Jan 26, 2025 10:13 AM Reporting Lab: [place] [facility] [address] [place] [address] Performin g Lab: [place] [facility] [address] [place] [address] [facility] CHOLESTERO L PANEL (PB) TRIGLYCERID E [MASS/VOLUM E] IN SERUM OR PLASMA 73 mg/dL 0 - 150 01/26 Specimen Type: PLASMA No comment entered. Ordering Provider: Prakash MOYER Report Released Date/Time : Jan 26, 2025 10:13 AM Reporting Lab: [place] [facility] [address] [place] [address] Performin g Lab: [place] [facility] [address] [place] [address] [facility] CHOLESTERO L PANEL (PB) CHOLESTEROL IN LDL [MASS/VOLUM E] IN SERUM OR PLASMA BY CALCULATION 88.4 mg/dL 01/26 Specimen Type: PLASMA No comment entered. Ordering Provider: Prakash MOYER Report Released Date/Time : Jan 26, 2025 10:13 AM Reporting Lab: [place] [facility] [address] [place] [address] Performin g Lab: [place] [facility] [address] [place] [address] [facility] CHOLESTERO L PANEL (PB) CHOLESTEROL IN HDL [MASS/VOLUM E] IN SERUM OR PLASMA 49.0 mg/dL 40 01/26 H Specimen Type: PLASMA No comment entered. Ordering Provider: Prakash MOYER R Report Released Date/Time : Jan 26, 2025 10:13 AM Reporting Lab: [place] [facility] [address] [place] [address] Performin g Lab: [place] [facility] [address] [place] [address] [facility] CHOLESTERO L PANEL (PB) CHOLESTEROL IN HDL/CHOLEST VALDEMAR.TOTAL [MASS RATIO] IN SERUM OR PLASMA 32.2 25 01/26 Specimen Type: PLASMA No comment entered. Ordering Provider: Prakash MOYER Report Released Date/Time : Jan 26, 2025 10:13 AM Reporting Lab: [place] [facility] [address] [place] [address] Performin g Lab: [place] [facility] [address] [place] [address] [facility] TSH (MA-PB) THYROTROPIN [UNITS/VOLU ME] IN SERUM OR PLASMA 5.173 u[IU]/mL 0.47 - 5 01/26 H Specimen Type: SERUM No comment entered. Ordering Provider: Prakash MOYER R Report Released Date/Time : Jan 26, 2025 10:13 AM Reporting Lab: [place] [facility] [address] [place] [address] Performin g Lab: [place] [facility] [address] [place] [address] [facility] TSH (MA-PB) THYROXINE (T4) FREE [MASS/VOLUM E] IN SERUM OR PLASMA 0.84 ng/dL 01/26 Specimen Type: SERUM No comment entered. Ordering Provider: Prakash MOYER R Report Released Date/Time : Jan 26, 2025 10:13 AM Reporting Lab: [place] [facility] [address] [place] [address] Performin g Lab: [place] [facility] [address] [place] [address] [facility] CBC LEUKOCYTES [#/VOLUME] IN BLOOD BY AUTOMATED COUNT 5.2 10*3/uL 3.6 - 11.2 01/26 Specimen Type: BLOOD No comment entered. Ordering Provider: Prakash MOYER Report Released Date/Time : Jan 26, 2025 10:13 AM Reporting Lab: [place] [facility] [address] [place] [address] Performin g Lab: [place] [facility] [address] [place] [phone] [facility] CBC ERYTHROCYTE S [#/VOLUME] IN BLOOD BY AUTOMATED COUNT 4.66 10*6/uL 4.10 - 5.70 01/26 Specimen Type: BLOOD No comment entered. Ordering Provider: Prakash MOYER R Report Released Date/Time : Jan 26, 2025 10:13 AM Reporting Lab: [place] [facility] [address] [place] [address] Performin g Lab: [place] [facility] [address] [place] [phone] [facility] CBC HEMOGLOBIN [MASS/VOLUM E] IN BLOOD 13.7 g/dL 13.1 - 16.8 01/26 Specimen Type: BLOOD No comment entered. Ordering Provider: Prakash MOYER R Report Released Date/Time : Jan 26, 2025 10:13 AM Reporting Lab: [place] [facility] [address] [place] [address] Performin g Lab: [place] [facility] [address] [place] [phone] [facility] CBC HEMATOCRIT [VOLUME FRACTION] OF BLOOD 42.2 38.2 - 48.4 01/26 Specimen Type: BLOOD No comment entered. Ordering Provider: Prakash MOYER R Report Released Date/Time : Jan 26, 2025 10:13 AM Reporting Lab: [place] [facility] [address] [place] [address] Performin g Lab: [place] [facility] [address] [place] [address] [facility] CBC MCV [ENTITIC VOLUME] BY AUTOMATED COUNT 90.6 fL 80.0 - 100.0 01/26 Specimen Type: BLOOD No comment entered. Ordering Provider: Prakash MOYER R Report Released Date/Time : Jan 26, 2025 10:13 AM Reporting Lab: [place] [facility] [address] [place] [address] Performin g Lab: [place] [facility] [address] [place] [address] [facility] CBC MCH [ENTITIC MASS] BY AUTOMATED COUNT 29.4 pg 27.0 - 34.0 01/26 Specimen Type: BLOOD No comment entered. Ordering Provider: Prakash MOYER Report Released Date/Time : Jan 26, 2025 10:13 AM Reporting Lab: [place] [facility] [address] [place] [address] Performin g Lab: [place] [facility] [address] [place] [address] [facility] CBC MCHC [MASS/VOLUM E] BY AUTOMATED COUNT 32.5 g/dL 33.0 - 36.0 01/26 L Specimen Type: BLOOD No comment entered. Ordering Provider: Prakash MOYER Report Released Date/Time : Jan 26, 2025 10:13 AM Reporting Lab: [place] [facility] [address] [place] [address] Performin g Lab: [place] [facility] [address] [place] [address] [facility] CBC PLATELETS [#/VOLUME] IN BLOOD BY AUTOMATED COUNT 205 10*3/uL 150 - 400 01/26 Specimen Type: BLOOD No comment entered. Ordering Provider: Prakash MOYER R Report Released Date/Time : Jan 26, 2025 10:13 AM Reporting Lab: [place] [facility] [address] [place] [address] Performin g Lab: [place] [facility] [address] [place] [address] [facility] CBC PLATELET MEAN VOLUME [ENTITIC VOLUME] IN BLOOD BY AUTOMATED COUNT 9.9 fL 7.5 - 11.2 01/26 Specimen Type: BLOOD No comment entered. Ordering Provider: Prakash MOYER Report Released Date/Time : Jan 26, 2025 10:13 AM Reporting Lab: [place] [facility] [address] [place] [address] Performin g Lab: [place] [facility] [address] [place] [address] [facility] CBC ERYTHROCYTE DISTRIBUTIO N WIDTH [RATIO] BY AUTOMATED COUNT 13.8 11.8 - 15.1 01/26 Specimen Type: BLOOD No comment entered. Ordering Provider: Prakash MOYER Report Released Date/Time : Jan 26, 2025 10:13 AM Reporting Lab: [place] [facility] [address] [place] [address] Performin g Lab: [place] [facility] [address] [place] [address] [facility] CBC LYMPHOCYTES /100 LEUKOCYTES IN BLOOD BY AUTOMATED COUNT 22.3 01/26 Specimen Type: BLOOD No comment entered. Ordering Provider: Prakash MOYER Report Released Date/Time : Jan 26, 2025 10:13 AM Reporting Lab: [place] [facility] [address] [place] [address] Performin g Lab: [place] [facility] [address] [place] [address] [facility] CBC MONOCYTES/1 00 LEUKOCYTES IN BLOOD BY AUTOMATED COUNT 10.9 01/26 Specimen Type: BLOOD No comment entered. Ordering Provider: BRIGETTE MOYER Report Released Date/Time : Jan 26, 2025 10:13 AM Reporting Lab: [place] [facility] [address] [place] [address] Performin g Lab: [place] [facility] [address] [place] [address] [facility] CBC NEUTROPHILS /100 LEUKOCYTES IN BLOOD BY AUTOMATED COUNT 62.3 01/26 Specimen Type: BLOOD No comment entered. Ordering Provider: Prakash MOYER Report Released Date/Time : Jan 26, 2025 10:13 AM Reporting Lab: [place] [facility] [address] [place] [address] Performin g Lab: [place] [facility] [address] [place] [address] [facility] CBC EOSINOPHILS /100 LEUKOCYTES IN BLOOD BY AUTOMATED COUNT 3.3 01/26 Specimen Type: BLOOD No comment entered. Ordering Provider: Prakash MOYER Report Released Date/Time : Jan 26, 2025 10:13 AM Reporting Lab: [place] [facility] [address] [place] [address] Performin g Lab: [place] [facility] [address] [place] [address] [facility] CBC BASOPHILS/1 00 LEUKOCYTES IN BLOOD BY AUTOMATED COUNT 1.0 01/26 Specimen Type: BLOOD No comment entered. Ordering Provider: Prakash MOYER Report Released Date/Time : Jan 26, 2025 10:13 AM Reporting Lab: [place] [facility] [address] [place] [address] Performin g Lab: [place] [facility] [address] [place] [address] [facility] CBC LYMPHOCYTES [#/VOLUME] IN BLOOD BY AUTOMATED COUNT 1.15 10*3/uL 0.77 - 4.50 01/26 Specimen Type: BLOOD No comment entered. Ordering Provider: Prakash MOYER Report Released Date/Time : Jan 26, 2025 10:13 AM Reporting Lab: [place] [facility] [address] [place] [address] Performin g Lab: [place] [facility] [address] [place] [address] [facility] CBC MONOCYTES [#/VOLUME] IN BLOOD BY AUTOMATED COUNT 0.56 10*3/uL 0.19 - 0.8 01/26 Specimen Type: BLOOD No comment entered. Ordering Provider: MOYER,C ATHERINE R Report Released Date/Time : Jan 26, 2025 10:13 AM Reporting Lab: [place] [facility] [address] [place] [address] Performin g Lab: [place] [facility] [address] [place] [address] [facility] CBC NEUTROPHILS [#/VOLUME] IN BLOOD BY AUTOMATED COUNT 3.22 10*3/uL 2.10 - 8.00 01/26 Specimen Type: BLOOD No comment entered. Ordering Provider: Prakash MOYER Report Released Date/Time : Jan 26, 2025 10:13 AM Reporting Lab: [place] [facility] [address] [place] [address] Performin g Lab: [place] [facility] [address] [place] [address] [facility] CBC EOSINOPHILS [#/VOLUME] IN BLOOD BY AUTOMATED COUNT 0.17 10*3/uL 0.00 - 0.60 01/26 Specimen Type: BLOOD No comment entered. Ordering Provider: Prakash MOYER R Report Released Date/Time : Jan 26, 2025 10:13 AM Reporting Lab: [place] [facility] [address] [place] [address] Performin g Lab: [place] [facility] [address] [place] [address] [facility] CBC BASOPHILS [#/VOLUME] IN BLOOD BY AUTOMATED COUNT 0.05 10*3/uL 0.00 - 0.20 01/26 Specimen Type: BLOOD No comment entered. Ordering Provider: Prakash MOYER Report Released Date/Time : Jan 26, 2025 10:13 AM Reporting Lab: [place] [facility] [address] [place] [address] Performin g Lab: [place] [facility] [address] [place] [address] [facility] CBC IMMATURE GRANULOCYTE S/100 LEUKOCYTES IN BLOOD BY AUTOMATED COUNT 0.2 01/26 Specimen Type: BLOOD No comment entered. Ordering Provider: Prakash MOYER R Report Released Date/Time : Jan 26, 2025 10:13 AM Reporting Lab: [place] [facility] [address] [place] [address] Performin g Lab: [place] [facility] [address] [place] [address] [facility] CBC IMMATURE GRANULOCYTE S [#/VOLUME] IN BLOOD BY AUTOMATED COUNT 0.01 10*3/uL 0.00 - 0.05 01/26 Specimen Type: BLOOD No comment entered. Ordering Provider: Prakash MOYER Report Released Date/Time : Jan 26, 2025 10:13 AM Reporting Lab: [place] [facility] [address] [place] [address] Performin g Lab: [place] [facility] [address] [place] [address] [facility] COMPREHENS DELIA METABOLIC PANEL CREATININE [MASS/VOLUM E] IN SERUM OR PLASMA 1.10 mg/dL 0.7 - 1.3 01/26 Specimen Type: PLASMA No comment entered. Ordering Provider: Prakash MOYER R Report Released Date/Time : Jan 26, 2025 10:13 AM Reporting Lab: [place] [facility] [address] [place] [address] Performin g Lab: [place] [facility] [address] [place] [address] [facility] COMPREHENS DELIA METABOLIC PANEL UREA NITROGEN [MASS/VOLUM E] IN SERUM OR PLASMA 31 mg/dL 9 - 25 01/26 H Specimen Type: PLASMA No comment entered. Ordering Provider: Prakash MOYER Report Released Date/Time : Jan 26, 2025 10:13 AM Reporting Lab: [place] [facility] [address] [place] [address] Performin g Lab: [place] [facility] [address] [place] [place] [address] [facility] COMPREHENS DELIA METABOLIC PANEL GLUCOSE [MASS/VOLUM E] IN SERUM OR PLASMA 93 mg/dL 72 - 99 01/26 Specimen Type: PLASMA No comment entered. Ordering Provider: Prakash MOYER Report Released Date/Time : Jan 26, 2025 10:13 AM Reporting Lab: [place] [facility] [address] [place] [address] 8 Performin g Lab: [place] [facility] [address] [place] [address] 8 [facility] COMPREHENS DELIA METABOLIC PANEL SODIUM [MOLES/VOLU ME] IN SERUM OR PLASMA 144 meq/L 136 - 145 01/26 Specimen Type: PLASMA No comment entered. Ordering Provider: Prakash MOYER R Report Released Date/Time : Jan 26, 2025 10:13 AM Reporting Lab: [place] [facility] [address] [place] [address] 8 Performin g Lab: [place] [facility] [address] [place] [address] 8 [facility] COMPREHENS DELIA METABOLIC PANEL POTASSIUM [MOLES/VOLU ME] IN SERUM OR PLASMA 4.3 meq/L 3.5 - 5 01/26 Specimen Type: PLASMA No comment entered. Ordering Provider: Prakash MOYER R Report Released Date/Time : Jan 26, 2025 10:13 AM Reporting Lab: [place] [facility] [address] [place] [address] 8 Performin g Lab: [place] [facility] [address] [place] [address] 8 [facility] COMPREHENS DELIA METABOLIC PANEL CHLORIDE [MOLES/VOLU ME] IN SERUM OR PLASMA 113 meq/L 98 - 107 01/26 H Specimen Type: PLASMA No comment entered. Ordering Provider: Prakash MOYER R Report Released Date/Time : Jan 26, 2025 10:13 AM Reporting Lab: [place] [facility] [address] [place] [address] 8 Performin g Lab: [place] [facility] [address] [place] [address] 8 [facility] COMPREHENS DELIA METABOLIC PANEL CARBON DIOXIDE, TOTAL [MOLES/VOLU ME] IN SERUM OR PLASMA 25 meq/L 22 - 31 01/26 Specimen Type: PLASMA No comment entered. Ordering Provider: Prakash MOYER Report Released Date/Time : Jan 26, 2025 10:13 AM Reporting Lab: [place] [facility] [address] [place] [address] 8 Performin g Lab: [place] [facility] [address] [place] [address] 8 [facility] COMPREHENS DELIA METABOLIC PANEL CALCIUM [MASS/VOLUM E] IN SERUM OR PLASMA 8.6 mg/dL 8.4 - 10.4 01/26 Specimen Type: PLASMA No comment entered. Ordering Provider: Prakash MOYER Report Released Date/Time : Jan 26, 2025 10:13 AM Reporting Lab: [place] [facility] [address] [place] [address] 8 Performin g Lab: [place] [facility] [address] [place] [address] 8 [facility] COMPREHENS DELIA METABOLIC PANEL PROTEIN [MASS/VOLUM E] IN SERUM OR PLASMA 6.4 g/dL 6 - 8.6 01/26 Specimen Type: PLASMA No comment entered. Ordering Provider: Prakash MOYER Report Released Date/Time : Jan 26, 2025 10:13 AM Reporting Lab: [place] [facility] [address] [place] [address] 8 Performin g Lab: [place] [facility] [address] [place] [address] 8 [facility] COMPREHENS DELIA METABOLIC PANEL ALBUMIN [MASS/VOLUM E] IN SERUM OR PLASMA 3.8 g/dL 3.4 - 5 01/26 Specimen Type: PLASMA No comment entered. Ordering Provider: Prakash MOYER Report Released Date/Time : Jan 26, 2025 10:13 AM Reporting Lab: [place] [facility] [address] [place] [address] 8 Performin g Lab: [place] [facility] [address] [place] [address] 8 [facility] COMPREHENS DELIA METABOLIC PANEL BILIRUBIN.T OTAL [MASS/VOLUM E] IN SERUM OR PLASMA 0.5 mg/dL 0.2 - 1.2 01/26 Specimen Type: PLASMA No comment entered. Ordering Provider: MOYER,C ATHERINE R Report Released Date/Time : Jan 26, 2025 10:13 AM Reporting Lab: [place] [facility] [address] [place] [address] 8 Performin g Lab: [place] [facility] [address] [place] [address] 8 [facility] COMPREHENS DELIA METABOLIC PANEL ALKALINE PHOSPHATASE [ENZYMATIC ACTIVITY/VO LUME] IN SERUM OR PLASMA 50 U/L 40 - 150 01/26 Specimen Type: PLASMA No comment entered. Ordering Provider: Prakash MOYER Report Released Date/Time : Jan 26, 2025 10:13 AM Reporting Lab: [place] [facility] [address] [place] [address] 8 Performin g Lab: [place] [facility] [address] [place] [address] 8 [facility] COMPREHENS DELIA METABOLIC PANEL ASPARTATE AMINOTRANSF ERASE [ENZYMATIC ACTIVITY/VO LUME] IN SERUM OR PLASMA 23 U/L 5 - 34 01/26 Specimen Type: PLASMA No comment entered. Ordering Provider: Prakash MOYER Report Released Date/Time : Jan 26, 2025 10:13 AM Reporting Lab: [place] [facility] [address] [place] [address] 8 Performin g Lab: [place] [facility] [address] [place] [address] 8 [facility] COMPREHENS DELIA METABOLIC PANEL ALANINE AMINOTRANSF ERASE [ENZYMATIC ACTIVITY/VO LUME] IN SERUM OR PLASMA 17 U/L 8 - 40 01/26 Specimen Type: PLASMA No comment entered. Ordering Provider: Prakash MOYER R Report Released Date/Time : Jan 26, 2025 10:13 AM Reporting Lab: [place] [facility] [address] [place] [address] 8 Performin g Lab: [place] [facility] [address] [place] [address] 8 [facility] COMPREHENS DELIA METABOLIC PANEL GLOMERULAR FILTRATION RATE/1.73 SQ M.PREDICTED [VOLUME RATE/AREA] IN SERUM, PLASMA OR BLOOD BY CREATININE- BASED FORMULA (CKD-EPI 2020) 65 01/26 Specimen Type: PLASMA No comment entered. Ordering Provider: Prakash MOYER Report Released Date/Time : Jan 26, 2025 10:13 AM Reporting Lab: [place] [facility] [address] [place] [address] 8 Performin g Lab: [place] [facility] [address] [place] [address] 8 [facility] VITAMIN D, 25-HYDROXY 25-HYDROXYV ITAMIN D3 [MASS/VOLUM E] IN SERUM OR PLASMA 39.3 ng/mL 30 - 96 01/26 Specimen Type: SERUM No comment entered. Ordering Provider: Prakash MOYER Report Released Date/Time : Jan 26, 2025 10:13 AM Reporting Lab: [place] [facility] [address] [place] [address] 8 Performin g Lab: [place] [facility] [address] [place] [address] 8 [facility] URINALYSIS (STL-PB) COLOR OF URINE Yellow 01/26 Specimen Type: URINE No comment entered. Ordering Provider: Prakash MOYER Report Released Date/Time : Jan 26, 2025 10:13 AM Reporting Lab: [place] [facility] [address] [place] [address] 8 Performin g Lab: [place] [facility] [address] [place] [address] 8 [facility] URINALYSIS (STL-PB) BILIRUBIN.T OTAL [PRESENCE] IN URINE BY TEST STRIP NEGATIVEm g/dL 01/26 Specimen Type: URINE No comment entered. Ordering Provider: Prakash MOYER Report Released Date/Time : Jan 26, 2025 10:13 AM Reporting Lab: [place] [facility] [address] [place] [address] 8 Performin g Lab: [place] [facility] [address] [place] [address] 8 [facility] URINALYSIS (STL-PB) PH OF URINE BY TEST STRIP 5.5 5.0 - 8.0 01/26 Specimen Type: URINE No comment entered. Ordering Provider: Prakash MOYER Report Released Date/Time : Jan 26, 2025 10:13 AM Reporting Lab: [place] [facility] [address] [place] [address] 8 Performin g Lab: [place] [facility] [address] [place] [address] 8 [facility] URINALYSIS (STL-PB) APPEARANCE OF URINE CLEAR 01/26 Specimen Type: URINE No comment entered. Ordering Provider: Prakash MOYER Report Released Date/Time : Jan 26, 2025 10:13 AM Reporting Lab: [place] [facility] [address] [place] [address] 8 Performin g Lab: [place] [facility] [address] [place] [address] 8 [facility] URINALYSIS (STL-PB) NITRITE [PRESENCE] IN URINE BY TEST STRIP NEGATIVEm g/dL 01/26 Specimen Type: URINE No comment entered. Ordering Provider: Prakash MOYER Report Released Date/Time : Jan 26, 2025 10:13 AM Reporting Lab: [place] [facility] [address] [place] [address] 8 Performin g Lab: [place] [facility] [address] [place] [address] 8 [facility] URINALYSIS (STL-PB) GLUCOSE [MASS/VOLUM E] IN URINE BY TEST STRIP NORMALmg/ dL 01/26 Specimen Type: URINE No comment entered. Ordering Provider: Prakash MOYER Report Released Date/Time : Jan 26, 2025 10:13 AM Reporting Lab: [place] [facility] [address] [place] [address] 8 Performin g Lab: [place] [facility] [address] [place] [address] 8 [facility] URINALYSIS (STL-PB) PROTEIN [MASS/VOLUM E] IN URINE BY TEST STRIP NEGATIVEm g/dL 01/26 Specimen Type: URINE No comment entered. Ordering Provider: Prakash MOYER Report Released Date/Time : Jan 26, 2025 10:13 AM Reporting Lab: [place] [facility] [address] [place] [address] 8 Performin g Lab: [place] [facility] [address] [place] [address] 8 [facility] URINALYSIS (STL-PB) URN.UROBILI NOGEN NORMALmg/ dL 01/26 Specimen Type: URINE No comment entered. Ordering Provider: Prakash MOYER Report Released Date/Time : Jan 26, 2025 10:13 AM Reporting Lab: [place] [facility] [address] [place] [address] 8 Performin g Lab: [place] [facility] [address] [place] [address] 8 [facility] URINALYSIS (STL-PB) HEMOGLOBIN [MASS/VOLUM E] IN URINE BY TEST STRIP NEGATIVEm g/dL 01/26 Specimen Type: URINE No comment entered. Ordering Provider: Prakash MOYER Report Released Date/Time : Jan 26, 2025 10:13 AM Reporting Lab: [place] [facility] [address] [place] [address] 8 Performin g Lab: [place] [facility] [address] [place] [address] 8 [facility] URINALYSIS (STL-PB) KETONES [MASS/VOLUM E] IN URINE BY TEST STRIP NEGATIVEm g/dL 01/26 Specimen Type: URINE No comment entered. Ordering Provider: Prakash MOYER Report Released Date/Time : Jan 26, 2025 10:13 AM Reporting Lab: [place] [facility] [address] [place] [address] 8 Performin g Lab: [place] [facility] [address] [place] [address] 8 [facility] URINALYSIS (STL-PB) URN.LEUK.ES T. NEGATIVE 01/26 Specimen Type: URINE No comment entered. Ordering Provider: Prakash MOYER Report Released Date/Time : Jan 26, 2025 10:13 AM Reporting Lab: [place] [facility] [address] [place] [address] 8 Performin g Lab: [place] [facility] [address] [place] [address] 8 [facility] URINALYSIS (STL-PB) SPECIFIC GRAVITY OF URINE 1.031 1.005 - 1.029 01/26 H Specimen Type: URINE No comment entered. Ordering Provider: Prakash MOYER Report Released Date/Time : Jan 26, 2025 10:13 AM Reporting Lab: [place] [facility] [address] [place] [address] 8 Performin g Lab: [place] [facility] [address] [place] [address] 8 [facility] HGA1C HEMOGLOBIN A1C/HEMOGLO BIN.TOTAL IN BLOOD 5.6 4.0 - 6.0 09/15 Specimen Type: BLOOD No comment entered. Ordering Provider: Prakash MOYER Report Released Date/Time : Sep 15, 2024 03:34 PM Reporting Lab: [place] [facility] [address] [place] [address] 8 Performin g Lab: [place] [facility] [address] [place] [address] 8 [facility] TSH (MA-PB) THYROTROPIN [UNITS/VOLU ME] IN SERUM OR PLASMA 4.834 u[IU]/mL 0.47 - 5 09/15 Specimen Type: SERUM No comment entered. Ordering Provider: Prakash MOYER Report Released Date/Time : Sep 15, 2024 03:34 PM Reporting Lab: [place] [facility] [address] [place] [address] 8 Performin g Lab: [place] [facility] [address] [place] [address] 8 [facility] CHOLESTERO L PANEL (PB) CHOLESTEROL [MASS/VOLUM E] IN SERUM OR PLASMA 145 mg/dL 0 - 200 09/15 Specimen Type: PLASMA No comment entered. Ordering Provider: Prakash MOYER Report Released Date/Time : Sep 15, 2024 03:34 PM Reporting Lab: [place] [facility] [address] [place] [address] 8 Performin g Lab: [place] [facility] [address] [place] [address] 8 [facility] CHOLESTERO L PANEL (PB) TRIGLYCERID E [MASS/VOLUM E] IN SERUM OR PLASMA 118 mg/dL 0 - 150 09/15 Specimen Type: PLASMA No comment entered. Ordering Provider: Prakash MOYER R Report Released Date/Time : Sep 15, 2024 03:34 PM Reporting Lab: [place] [facility] [address] [place] [address] 8 Performin g Lab: [place] [facility] [address] [place] [address] 8 [facility] CHOLESTERO L PANEL (PB) CHOLESTEROL IN LDL [MASS/VOLUM E] IN SERUM OR PLASMA BY CALCULATION 78.2 mg/dL 09/15 Specimen Type: PLASMA No comment entered. Ordering Provider: Prakash MOYER R Report Released Date/Time : Sep 15, 2024 03:34 PM Reporting Lab: [place] [facility] [address] [place] [address] 8 Performin g [place]: [place] [facility] [address] [place] [address] 8 [facility] CHOLESTERO L PANEL (PB) CHOLESTEROL IN HDL [MASS/VOLUM E] IN SERUM OR PLASMA 43.2 mg/dL 40 09/15 H Specimen Type: PLASMA No comment entered. Ordering Provider: Prakash MOYER R Report Released Date/Time : Sep 15, 2024 03:34 PM Reporting Lab: [place] [facility] [address] [place] [address] 8 Performin g [place]: [place] [facility] [address] [place] [address] 8 [facility] CHOLESTERO L PANEL (PB) CHOLESTEROL IN HDL/CHOLEST VALDEMAR.TOTAL [MASS RATIO] IN SERUM OR PLASMA 29.8 25 09/15 Specimen Type: PLASMA No comment entered. Ordering Provider: Prakash MOYER R Report Released Date/Time : Sep 15, 2024 03:34 PM Reporting Lab: [place] [facility] [address] [place] [address] 8 Performin g Lab: [place] [facility] [address] [place] [address] 8 [place] [facility] Vital Signs Combined list of inpatient and outpatient Vital Signs from Department of Defense and Veterans Affairs, ranging from 12 months to all on record, depending upon the facility. Vital Sign Value Date Comments Source SYSTOLIC BLOOD PRESSURE 84 01/28/2025 09:47:00 [place] [facility] DIASTOLIC BLOOD PRESSURE 47 01/28/2025 09:47:00 [place] [facility] PULSE OXIMETRY 96 01/28/2025 09:47:00 [facility] TEMPERATURE 97.4 01/28/2025 09:47:00 [place] [facility] PULSE 50 01/28/2025 09:47:00 [place] [facility] SYSTOLIC BLOOD PRESSURE 136 09/15/2024 16:10:34 [place] [facility] DIASTOLIC BLOOD PRESSURE 78 09/15/2024 16:10:34 [place] [facility] PULSE OXIMETRY 99 09/15/2024 16:10:34 [facility] PAIN 0 09/15/2024 16:10:34 [place] [facility] HEIGHT 69 09/15/2024 16:10:34 [place] [facility] TEMPERATURE 97.9 09/15/2024 16:10:34 [place] [facility] PULSE 55 09/15/2024 16:10:34 [place] [facility] RESPIRATION 18 09/15/2024 16:10:34 [place] [facility] SYSTOLIC BLOOD PRESSURE 118 09/05/2024 12:50:00 [place] [facility] DIASTOLIC BLOOD PRESSURE 70 09/05/2024 12:50:00 [place] [facility] PULSE OXIMETRY 96 09/05/2024 12:50:00 [facility] WEIGHT 163 09/05/2024 12:50:00 [place] [facility] BMI 24 kg/m2 09/05/2024 12:50:00 [place] [facility] TEMPERATURE 97.6 09/05/2024 12:50:00 [place] [facility] PULSE 68 09/05/2024 12:50:00 [place] [facility] RESPIRATION 18 09/05/2024 12:50:00 [facility] Encounters Combined list of: 1) Encounters from Department of Veterans Affairs facilities going backup to the last 18 months, not all VA inpatient encounters are included; 2) Encounters from the Department of Defense facilities going backup to 280 months. Location Location Details Encounter Type Encounter Number Reason For Visit Attending Provider ADM Date DC Date Status Disposition Source [facility] REMOVE IMPACTED EAR [place] [id number] Diagnos is: ICD-10- CM H91.90 Unspeci fied hearing loss, unspeci fied ear WOOD,CYNTHIA ROBERSON M 12/20 [facility] OFF/OP EST MARCH X REQ PHY/QHP [id number] Diagnos is: ICD-10- CM L98.9 Disorde r of the skin and subcuta neous tissue, unspeci fied Alin AWAD 12/27 [facility] F[place] [id number] Diagnos is: ICD-10- CM H90.3 Sensori neural hearing loss, bilater LAMONTE Gilmore RT P 12/27 [facility] [place] [facility] EAR IMPRESSION [id number] Diagnos is: ICD-10- CM H90.3 Sensori neural hearing loss, bilater LAMONTE Gilmore RT P 12/27 [place] [facility] Outpatient Encounter [id number] Diagnos is: ICD-10- CM Z00.00 Encntr for general adult medical exam w/o abnorma l finding s PRABHJOT MOYER R 01/23 [facility] Outpatient Encounter [id number] 02/12 [facility] Outpatient Encounter [id number] 02/14 [facility] Outpatient Encounter [id number] 02/25 [facility] Outpatient Encounter [id number] 02/[address] [facility] TELEHEALTH FACILITY FEE [id number] Diagnos is: ICD-10- CM Z46.1 Encount er for fitting and adjustm ent of hearing aid LAMONTE URIAS RT P 02/26 [facility] UNLISTED MISC PROSTHETIC SER [id number] Diagnos is: ICD-10- CM Z46.1 Encount er for fitting and adjustm ent of hearing aid LAMONTE URIAS RT P 02/26 [facility] Outpatient Encounter [id number] 03/10 [facility] Outpatient Encounter [id number] 03/12 [facility] Outpatient Encounter [id number] 07/25 [facility] OFF/OP EST MAY X REQ PHY/QHP [id number] Diagnos is: ICD-10- CM Z23 Encount er for immuniz Alin Alex 07/25 [facility] Outpatient Encounter [id number] PRABHJOT MOYER 09/05 [facility] [place] [facility] OFF/OP EST MAY X REQ PHY/QHP [id number] Diagnos is: ICD-10- CM R11.0 Nausea Alin AWAD 09/05 [facility] Outpatient Encounter [id number] PRABHJOT MOYER 09/15 [facility] OFFICE O/P EST MOD 30 MIN [id number] Diagnos is: ICD-10- CM M19.90 Unspeci fied osteoar thritis , unspeci fied site PRABHJOT MOYER R 09/15 [facility] Outpatient Encounter [id number] 09/15 [facility] Outpatient Encounter [id number] 09/18 [facility] [place] [facility] Outpatient Encounter [id number] 10/21 [place] [facility] [place] [facility] Outpatient Encounter [id number] 10/28 [place] [facility] OFF/OP EST MAY X REQ PHY/QHP [id number] Diagnos is: ICD-10- CM 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, 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 01/26 [facility] Outpatient Encounter [id number] 01/27 [facility] Outpatient Encounter [id number] Diagnos is: ICD-10- CM Z00.00 Encntr for general adult medical exam w/o abnorma l finding s PRABHJOT MOYER THERINE R 01/28 [facility] FUNDUS PHOTOGRAPH Y W/I&R [id number] Diagnos is: ICD-10- CM Z13.5 Encount er for screeni ng for eye and ear disorde rs [facility] 02/02 [facility] [place] [facility] Outpatient Encounter [id number] Diagnos is: ICD-10- CM Z13.9 Encount er for screeni ng, unspeci fied CLAUDIOMARISABEL LA S 02/02 [place] [facility] Outpatient Encounter [id number] [facility] 02/02 [facility] Outpatient Encounter [id number] 02/12 [facility] Outpatient Encounter [id number] 03/18 [facility] Outpatient Encounter [id number] 05/08 [facility] Social History Combined list of available smoking, tobacco, and other social history from Department of Defense and Veterans Affairs facilities. Social History Type Response Date Comment Sour e Tobacco smoking status NHIS [facility]AC[facility] NEVER USED 01/23/2024 [facility] History of tobacco use VA-TOBACCO NEVER USED 01/23/2023 [facility] History of tobacco use VA-TOBACCO NEVER USED 07/15/2021 [facility] History of tobacco use VA-TOBACCO NEVER USED 04/20/2020 [facility] Plan of Care List of future care activities from Department of [facility] Affairs facilities. Additional future care activities may be listed in the Assessment and Plan section. Date/Time Care Activity Care Activity Detail Facili ty 07/31/2025 AMBULATORY - MEDICINE AMBULATORY - MEDICI NE [facility]
--- OUTSIDE RECORDS SUMMARY | 2025-06-12 18:33 | XMS_ITS | Data Portability ---
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 [email or web address] Not available 05/13/2024 15:08:54 11/11/2024 11/11/2024 Document scribed by Chad Johnson Aviation Project Manager. I was present during interview and exam. I have reviewed and agree with above documentation. Dr. Kennedy Michaud. [email or web address] Not available 11/11/2024 09:28:19 05/13/2025 05/13/2025 Document scribed by Chad Johnson Aviation Project Manager. I was present during interview and exam. I have reviewed and agree with above documentation. Dr. Kennedy Michaud. A Care Coordination Assessment form was filled out as part of this patient's office visit today. [email or web address] Not available 05/13/2025 10:50:35 Plan of Treatment Reminders Order Date Submit Date Provider Last Modified By Organization Details Last Modified Time Details Appointments RECHECK 2024 07:00A Laurie Michaud, DO Not available Not available Not available Lab None recorded. Referral None recorded. Procedures None recorded. Surgeries None recorded. Imaging None recorded. Medication Orders Belsomra 10 mg tablet 2022 023 [email or web address] [facility], [address] [facility], [facility] [address], [place], [place], [phone], 11/07/2023 09:41:47 Patient TargetsNo targets recorded. Patient InstructionsNo instructions recorded. Reason for Referral None Reported. Results Created Date Observation Date Name Description Value Unit Range Abnormal Flag Note LastModifiedBy Organization Detail LastModifiedTime 05/15/2004/25/2023 CT, chest , w/ contr ast [facility], [place] [address]U T Scan Report Signed Patien t: Nelia Ramachandran on FUnit #: [id number] B: c ct#:OV [id number] e/Sex: 83 / MADM Date: Loc: JENNIFERRoo m/Bed: Attend ing Dr: Paulo sarmiento REPAIRER CONTROLLER TESTER Orderi ng Provid er/Guero elmore MD: Kristin Zamora REPAIRER CONTROLLER TESTER Date of Servic e: Proced ure(s) : CT chest w con* [id number] Access ion Number (s): [id number] ZA Report Number : [id number] WS: [facility]CRAD 4 CT chest w con* [id number] HISTOR Y: ABNORM AL CT CHEST REPEAT 12 MONTHS TECHNI QUE: Axial imagin g perfor med throug h the thorax . Estrada l and sagitt al reform ats are submit jacquie. All CT scans at [facility] use at least one of these dose optimi zation techni ques: automa jacquie exposu re contro l; mA and/or kV adjust ment per patien t size (inclu martina target ed exams where dose is matche d to clinic al indica tion); or iterat derrick recons tructi on. CONTRA ST: Omnipa que 350; 100 mL IV. DLP: 218.84 mGy.cm COMPAR FLAKITO: 03/31/20 22, 021 Lungs and centra l airway : Hypere xpande d lungs from emphys naldo. Scatte red maddy us subcen timete r nodule s are stable . Mild pleura l thicke esau along the minor fissur e is also stable . There are no new or enlarg ing nodule s since 021. No pneumo stephy. Pleura : Normal . No pleura l effusi on. Heart and perica rdium: Mildly enlarg ed heart. No effusi on. Medias tinum and gianna: No medias tinum or hilar adenop athy. Vessel s: Mild athero sclero sis aorta. Normal size pulmon kinza artery . Chest wall and lower neck: No soft tissue masses . Upper abdome n: Small hiatal hernia . Mild hepati c steato sis. RIGHT colon extend s anteri or to the liver. LEFT lobe hepati c cyst stable maximu m diamet er 1.5 cm. No bile duct dilata tion. Visual ized gallbl adder is normal . Negati ve pancre as. Negati ve spleen . No adrena l mass. Stable RIGHT renal cyst measur ing 1.5 cm. Mild cortic al thinni ng upper pole of each kidney . Osseou s struct ures: No destru ctive bone lesion s. Mild narrow ing of the glenoh umeral joints . ACCESS ION #: [id number] ZA CT/CT chest w con* [id number] IMPRES NASIR: 1. Subcen timete r, bilate ral noncal cified pulmon kinza nodule s and thicke esau along the RIGHT minor fissur e are stable since 021. No new or increa sing size of nodule or mass. No additi onal follow -up necess kinza. 2. Chroni c emphys naldo. 3. Hepati c and RIGHT renal cysts. Dictat ed By:Chase Santiago A DOSign ed By:Chase Santiago A DOSign ed Date/T david: 1135 [email or web address] Not Available 10/26 10:02:22 Result Notes Documentation Provider Name and Address Organization Details Recorded Time Ct, Chest, W/ Contrast : [facility] [address] [address] Scan ReportSigned Patient: Landon Guevara #: [id number]: [id number]#:[id number]/Sex: 83 / MADM Date: 04/25/23Loc: RADRoom/Bed:Attending Dr: Maggie Bah REPAIRER CONTROLLER TESTER Ordering Provider/Ordering MD: Maggie Bah Date of Service: 04/25/23 Procedure(s): CT chest w con* [id number] Accession Number(s): [id number] Report Number: [id number] WS: [id number] CT chest w con* [id number] HISTORY: ABNORMAL CT CHEST REPEAT 12 MONTHS TECHNIQUE: Axial imaging performed through the thorax. Coronal and sagittal reformats are submitted. All CT scans at [facility] use at least one of these dose optimization techniques: automated exposure control; mA and/or kV adjustment per patient size (includes targeted exams where dose is matched to clinical indication); or iterative reconstruction. CONTRAST: Omnipaque 350; 100 mL IV. DLP: 218.84 mGy.cm COMPARISON: 03/31/2022, 12/07/2020 Lungs and central airway: Hyperexpanded lungs from emphysema. Scattered numerous subcentimeter nodules are stable. Mild pleural thickening along the minor fissure is also stable. There are no new or enlarging nodules since 12/07/2020. No pneumonia. Pleura: Normal. No pleural effusion. Heart and pericardium: Mildly enlarged heart. No effusion. Mediastinum and gianna: No mediastinum or hilar adenopathy. Vessels: Mild atherosclerosis aorta. Normal size pulmonary artery. Chest wall and lower neck: No soft tissue masses. Upper abdomen: Small hiatal hernia. Mild hepatic steatosis. RIGHT colon extends anterior to the liver. LEFT lobe hepatic cyst stable maximum diameter 1.5 cm. No bile duct dilatation. Visualized gallbladder is normal. Negative pancreas. Negative spleen. No adrenal mass. Stable RIGHT renal cyst measuring 1.5 cm. Mild cortical thinning upper pole of each kidney. Osseous structures: No destructive bone lesions. Mild narrowing of the glenohumeral joints. CT/CT chest w con* [id number] IMPRESSION: 1. Subcentimeter, bilateral noncalcified pulmonary nodules and thickening along the RIGHT minor fissure are stable since 12/07/2020. No new or increasing size of nodule or mass. No additional follow-up necessary. 2. Chronic emphysema. 3. Hepatic and RIGHT renal cysts. Dictated By:Connie Calvo DOSigned By:Connie Calvo DOSigned Date/Time:04/25/23 1135 Kennedy Michaud DO [address] [place] [address], [phone], [facility] 11/07/2023 10:02:22 Problems Name Problem SNOMED Code Status Onset Date Resolution Date Notes Provider Name and Address Organization Details Recorded Time Chronic insomnia 606845683 Active 2022 Kennedy Michaud [address], [address] [place] [address] 5, [facility] 3 10:34:58 Benign prostatic hyperplasia with outflow obstruction 399414906 Active 2022 Kennedynery Michaud [address], [address] [place] [address] 5, [facility] 3 10:34:59 Hyperlipide ashli 36295244 Active 2022 Kennedy Michaud [address], [address] [place] [address] 5, [facility] 3 10:35:00 Chronic obstructive pulmonary disease 09310353 Active 2022 Kennedynery Michaud [address], [address], [facility] 3 10:35:01 Prepatellar bursitis of right knee 3870342761935 00 Active 2023 Kennedynery Michaud [address], [address] [place] [address] 5, [facility] 4 09:59:18 Inguinal hernia 345298280 Active 2023 Kennedynery Michaud [address], [address] [place] [address] 5, [facility] 4 09:59:20 Basal cell carcinoma of face 731641432 Active 2023 Kennedy Michaud, [address] [place], [address], [facility] 4 10:08:59 Essential hypertensio n 23014744 Active 2024 Chad rios, [facility] 5 10:58:54 Coronary arterioscle rosie 05802162 Active 2024 Kennedy Michaud, DO [address] [place], [address], [facility] 5 18:01:31 Problem Notes Documentation Provider Name and Address Organization Details Recorded Time Nanoscience Technician Consult Note : [facility] ([facility])[address] [place] [address] Cardiology Office Visit Report Signed Patient: Landon Guevara MR#: [id number] : 1940 Age/Sex: 85 / M ADM Date: 05/08/25 Loc: [facility] Room/Bed: Attending Dr: Emi Valentine BILLING CONTROL CLERK-C Report Number: [id number] HPI 2 week Details: The patient is an 85-year-old male presenting with chronic fatigue. He underwent stent placement in the LAD artery performed by Dr. Macias in December. Despite the procedure, his fatigue has persisted and is described as severe, emerging after minimal exertion. The patient notes feeling exhausted almost immediately after activities such as working at a shop or walking his dog. He mentions long-standing fatigue predating the procedure, further exacerbated post-operatively, without associated chest pain typical of exertion-induced angina. The patient has an average heart rate control of 62 beats per minute, with a notable sinus rhythm. He reports episodes of dizziness, potentially associated with his antihypertensive regimen, particularly losartan, which he recently reduced from 100 mg to 50 mg. He relates dizziness to be specifically unaffected by this dosage adjustment. The event monitor exclusivity revealed no atrial fibrillation but documented Premature Atrial Complexes (PACs), unassociated with noticeable palpitations. He denies any diagnosis of sleep apnea but admits to occasional snoring. He does not report swelling or fluid retention. Night-time leg cramps are present. His history includes hernia surgeries, complicating his potential engagement in cardiac rehabilitation, which he worries could exacerbate postoperative pain. Previously, we decreased losartan to 25 mg daily to adress potentially too tightly controlled blood pressure, which could contribute do At this time, he appears well compensated. I will be getting a limited echo to assess for LV function. He has an appointment with Dr. Macias in the next couple of weeks, and would like to keep this appointment. BP log provided to me still showed bps are soft sometimes in the 90s systolics. Allergies niacin Allergy (Verified 05/08/25 09:18) Unknown Home Medications - Last Reconciled 05/08/25 by Sherley Vu [arnicare gel ] aspirin 81 mg PO DAILY clopidogrel 75 mg PO DAILY finasteride 5 mg PO BEDTIME isosorbide mononitrate ER 15 mg PO DAILY losartan 50 mg PO DAILY lj-nkl-ympde-L8-uioetdn-zng ein 467-20-720-300 mcg (Centrum Silver Ultra Men's) 1 tab PO DAILY nitroglycerin 0.4 mg sublingual Q5M PRN omega 9-mjl-iks-fish oil 1,200 (144-216) mg (Fish Oil) 1,200 caps PO DAILY pravastatin 80 mg PO DAILY tamsulosin (Flomax) 0.4 mg PO BID PFSH PFSH: Medical History (Updated 04/15/25 @ 18:19 by Emi Valentine NP) Dizziness LV dysfunction Prepatellar bursitis of right knee Right knee DJD Chest pain BPH w urinary obs/LUTS Arthritis Family history of prostate problems Surgical History History of cataract extraction History of hernia surgery Family History Father , AT 56 No problems noted. Mother , AT 93 Heart disease Other CAD (coronary artery disease) Cancer Social History Smoking and tobacco/nicotine status: never used tobacco/nicotine Alcohol intake: current Alcohol intake frequency: holidays/special occasions only Substance/Drug Use: never Marital status: Current occupational status: retired Review of Systems General: Reports: 10 or more systems reviewed and unremarkable except as noted in History and below Card: Reports: lightheadedness and dyspnea on exertion; Denies: chest pain, palpitations, irregular heart rhythm, swelling of feet/ankles, syncope or pre-syncope Resp: Denies: dyspnea, productive cough or non-productive cough GI: Denies: hematochezia Adam/Lymph: Denies: easy bleeding Vital Signs 04/15/25 08:46 05/08/25 09:19 Height 5 ft 9 in 5 ft 9 in Weight 163 lb BMI 24.0 BP 100/60 Blood Pressure Location Lt brachial Position Sitting Respiration 16 Pulse 60 Pulse Source Pulse Oximeter Temp 97.8 F Pulse Oximetry (%) 98 Oxygen Delivery Method Room Air Physical Exam Narrative: EXAM NARRATIVE: General: No apparent distress, healthy appearing, well nourished HENMT: normoceophalic Muskuloskeletal: Full ROM Lymphatic: no lymphedema noted Respiratory: Normal respiratory effort, clear to auscultation bilaterally throughout all lung gardner, no use of accessory muscles Cardio: No JVD, regular rate, regular rhythm, S1 S2 normal, no murmurs, peripheral pulses 2+ throughout GI: Normal to inspection, nondistended Extremities: Full ROM, normal, normal capillary refill, no cyanosis or edema Neuro: Alert and oriented x4, no focal motor deficits Psych: Affect normal, denies suicidal ideation, mental status grossly normal Skin: No rashes or lesions noted, no wounds Assessment & Plan Assessment & Plan (1) Hyperlipemia: Qualifiers: Hyperlipidemia type: mixed hyperlipidemia Qualified Code(s): E78.2 - Mixed hyperlipidemia (2) LV dysfunction: (3) Coronary artery disease: Qualifiers: Coronary Disease-Associated Artery/Lesion type: [place] artery [place] vs. transplanted heart: [place] heart Associated angina: without angina Qualified Code(s): I25.10 - Atherosclerotic heart disease of [place] coronary artery without angina pectoris (4) Dizziness: Plan - Continue taking aspirin and Plavix as prescribed. - Monitor your blood pressure at home and discontinue losartan, take losartan 25 mg if your blood pressure goes into the 140s/90s - Stay hydrated, try to drink more water. - Try light exercise, but avoid anything that could cause pain at your previous hernia surgery locations. The patient presents with fatigued symptoms potentially linked to cardiovascular causes, particularly given his history of coronary artery disease with recent LAD stenting. The strategy is to assess ongoing cardiovascular health with an echocardiogram and consider adjustments to his antihypertensive therapy, specifically losartan, which may contribute to his symptoms if blood pressure is overly controlled. The clinical decision-making noted a well-managed heart rhythm, negating significant concerns of arrhythmia currently. Evaluating whether cardiac rehabilitation will be beneficial following an assessment of risk versus benefit regarding previous surgical interventions is essential. I discussed with the patient the need for further cardiovascular assessment to investigate persistent fatigue. We considered reducing his losartan dosage and recommended an echocardiogram and lab tests to rule out any cardiac-related dysfunction and check for any other contributing factors to fatigue. The possible role of cardiac rehabilitation in improving fatigue was also explained, highlighting benefits and ensuring no adverse effect from previous hernia surgeries. An appointment with Dr. Macias remains in place for continued follow-up, with instructions for patient self-monitoring of his blood pressure. Orders: Orders Comprehensive Metabolic Panel Today I25.10 - Atherosclerotic heart disease of [place] coronary artery without angina pectoris CV. echo limited 24384 Today I25.10 - Atherosclerotic heart disease of [place] coronary artery without angina pectoris Basic Metabolic Panel Today I25.10 - Atherosclerotic heart disease of [place] coronary artery without angina pectoris NT Pro B Type Natriuretic Pept Today E78.2 - Mixed hyperlipidemia Cardiac Studies Cardiac Studies (HCS): Chest X-Ray 12/28/22 Echocardiogram 12/26/[address] 04/25/23 Head Charrer Procedure 01/22/25 Cardiac Event Monitor 04/15/25 Electrocardiogram 04/15/25 Sestamibi Stress Test (Cardiology) 12/26/24 Myocardial Perfusion Scan NM 12/26/24 Intake Visit Reasons: 2 week Pain scale (0-10 scale): 0 Is the reason for visit related to pain management?: No Allergies niacin Allergy (Verified 05/08/25 09:18) Unknown Home Medications Home Medications - Last Reconciled 05/08/25 by Sherley Vu [arnicare gel ] aspirin 81 mg PO DAILY clopidogrel 75 mg PO DAILY finasteride 5 mg PO BEDTIME isosorbide mononitrate ER 15 mg PO DAILY losartan 50 mg PO DAILY ph-chv-xxlin-E2-ysjwugm-elx ein 885-87-174-300 mcg (Centrum Silver Ultra Men's) 1 tab PO DAILY nitroglycerin 0.4 mg sublingual Q5M PRN omega 5-gak-iws-fish oil 1,200 (144-216) mg (Fish Oil) 1,200 caps PO DAILY pravastatin 80 mg PO DAILY tamsulosin (Flomax) 0.4 mg PO BID Followed by:: Primary Care Physician Kennedy Michaud DO / [facility] Annual Assessments Date Next Due Annual Assessment Dates Next Due: Date of Next Suicide Risk Assessment 02/12/25 Quality Health Maintenance Does patient have any barriers to learning?: No Does patient have any communication needs?: Hearing aids Does patient use assistive: No Cane, No Walker, No Wheelchair, No Commode Chair, No Hospital Bed and No Respiratory Assist Device Medication Rec. Completed: Yes Cultural or Yazidi Beliefs: No Date Next Due Annual Assessment Dates Next Due: Date of Next Suicide Risk Assessment 02/12/25 History of Recent Travel Any recent travel in the last 8 weeks: No Smoking/Vaping Use Screening Smoking/Vaping use assessment performed: Yes Smoking/Vaping use: never smoked Suicide Risk Assessment Have you had little interest or pleasure in last 2 weeks?: Not At All Been feeling down, depressed, or hopeless over last 2 weeks?: Not At All Have you had Suicidal thoughts?: Not At All Total Score: 0 Patient score 3 or greater or had suicidal thoughts?: Negative Depression screening performed: Yes Fall Risk Assessment 1. Have you fallen in the last year?: No 2. Do you use a cane, walker, wheelchair, or crutch?: No 3.Do you lose your balance, feel confused, or dizzy?: No Coding Level of Care Code OFFICE/ OP VISIT EST LV 4 Diagnoses Mixed hyperlipidemia E78.2 Hyperlipidemia type: mixed hyperlipidemia LV dysfunction I51.9 Coronary artery disease involving [place] coronary artery of [place] heart without angina pectoris I25.10 Coronary Disease-Associated Artery/Lesion type: [place] artery [place] vs. transplanted heart: [place] heart Associated angina: without angina Dizziness R42 Additional Codes Blood Pressure - Systolic Blood Pressure: Systolic <130 (49058420) Blood Pressure - Diastolic Blood Pressure: Diastolic <80 (46335414) Pain - Is Patient in Pain?: No (41180333) Med Rec - Medication Rec. Completed: Yes (96007388) BMI - BMI Value: BMI Measured (42184700) Dictated By: Emi Valentine BILLING CONTROL CLERK Signed By: Signed Date/Time: 05/08/25 1149 DD/ 0749 Kennedy Victor Manuel, [address] [place], [address], [facility] 05/13/2025 10:52:59 Procedures Surgical History Date Name Laterality Status Provider Name and Address Organization Details Recorded Time 11/07/20 23 jr cryo warts completed Chad Johnson [facility] 11/07/2023 10:23:30 02/20/20 23 Arthrocentesis Major Joint/Bursa completed Kennedy Michaud DO [address] [place], [address], [facility] 02/19/2023 18:31:13 Imaging Results None recorded. Procedure Notes None recorded. Medical Equipment None Reported. Allergies Allergen ID Allergen Name Allergen Category Reaction Reaction Severity Criticality Documentation Date Start Date Code Code System Note Provider Name and Address Organization Details Recorded Time 468 niacin medicatio n Not available Not available Not available 02/19/2023 7393 RxNorm GWYNMoises HOWELL gabriel [facility] 12:53:09 Medications Name Sig Start Date Stop Date Status Note LastModified by Organization Details LastModified Time losartan 50 mg tablet TAKE 1 TABLET BY MOUTH ONCE DAILY 05/13 completed Not Available Not Available Not Available pravastat in 40 mg tablet Take 1 tablet every day by oral route. active Not Available Not Available No t Available isosorbid e mononitra te ER 30 mg tablet,ex tended release 24 hr TAKE 1 TABLET BY MOUTH ONCE DAILY 05/13 completed Not Available Not Available Not Available clopidogr el 75 mg tablet TAKE 1 TABLET BY MOUTH ONCE DAILY active Not Available Not Available No t Available tamsulosi n 0.4 mg capsule Take 1 capsule twice a day by oral route. active Not Available Not Available No t Available nitroglyc maurisio 0.4 mg sublingua l tablet DISSOLVE 1 TABLET UNDER TONGUE EVERY 5 MINUTES NEEDED FOR CHEST PAIN, DO NOT EXCEED THREE DOSES PER EPISODE active Not Available Not Available No t Available metoprolo l succinate ER 25 mg tablet,ex tended release 24 hr TAKE /2 (ONE-KARYN F) TABLET BY MOUTH ONCE DAILY 05/13 completed Not Available Not Available Not Available finasteri de 5 mg tablet Take 1 tablet every day by oral route. active Not Available Not Available No t Available amoxicill in 875 mg-potass ium clavulana te 125 mg tablet TAKE 1 TABLET BY MOUTH TWICE DAILY FOR 7 DAYS 05/15 completed Not Available Not Available Not Available aspirin daily active 0; Recorded 11/09/20 22 9:15AM by Guillermina Guzman, Office Visit; Not Available Not Available Not Available Pravachol at bedtime 11/07 completed VO CH/ab; 29434; Recorded 02/21/20 5:01PM by Nicole Murillo (Authori [place] through David Del Real DO), Refill Request; Mail Order Quantity : 90 Tablet; Mail Order Days: 90 Days; Refill Quantity : 0; Not Available Not Available Not Available omega-3 fatty acids-fis h oil 360 mg-1,200 mg capsule daily active 0; Recorded 11/09/20 22 9:15AM by Guillermina Guzman, Office Visit; Not Available Not Available Not Available Belsomra 10 mg tablet Take 1 tablet every day by oral route at bedtime for 30 days. 11/07 completed Not Available Not Available Not Available Vitals Date Recorded Body height Body mass index (BMI) Body weight Oxygen saturation Oxygen saturation in Arterial blood by Pulse oximetry Heart rate Respiratory rate Systolic And Diastolic Provider Name and Address Organization Details Last Updated DateTime 4 172.72 cm 24.8 kg/m2 74058.9 6 g 98 % 98 % 62 /min 20 /min 130/80 mm[Hg] Celina Krishnamurthy [facility] 4 09:40:30 Date Recorded Body height Body mass index (BMI) Body weight Oxygen saturation Oxygen saturation in Arterial blood by Pulse oximetry Heart rate Respiratory rate Systolic And Diastolic Provider Name and Address Organization Details Last Updated DateTime 5 172.72 cm 25 kg/m2 76744.8 5 g 97 % 97 % 59 /min 18 /min 126/80 mm[Hg] [facility] 5 10:34:42 Date Recorded Body weight Body mass index (BMI) Body height Oxygen saturation Oxygen saturation in Arterial blood by Pulse oximetry Heart rate Respiratory rate Body temperature Systolic And Diastolic Provider Name and Address Organization Details Last Updated DateTime 3 60698.1 5 g 24.9 kg/m2 172.72 cm 97 % 97 % 80 /min 18 /min 97.4 [degF] 126/74 mm[Hg] [facility] 3 09:53:18 Date Recorded Body height Provider Name an d Address Organization Details Last Updated DateTime 11/07/2023 172.72 cm [facility] 11/07/2023 09:33:11 Date Recorded Body mass index (BMI) Body weight Body temperature Respiratory rate Heart rate Oxygen saturation Oxygen saturation in Arterial blood by Pulse oximetry Systolic And Diastolic Provider Name and Address Organization Details Last Updated DateTime 3 25.5 kg/m2 32534.5 2 g 97.9 [degF] 20 /min 66 /min 97 % 97 % 124/78 mm[Hg] Rosa Balderasnes [facility] 3 09:39:57 Date Recorded Body height Body mass index (BMI) Body weight Oxygen saturation Oxygen saturation in Arterial blood by Pulse oximetry Heart rate Respiratory rate Systolic And Diastolic Provider Name and Address Organization Details Last Updated DateTime 4 172.72 cm 25.1 kg/m2 49627.8 4 g 98 % 98 % 64 /min 18 /min 120/88 mm[Hg] Celina Krishnamurthy [facility] 4 09:17:08 Social History None recorded. Functional Status Question Answer Note LastModified by Organizat ion Details LastModified Time Do you use any illicit or recreational drugs? No [email or web address] Information not available 05/15/2023 Do you or have you ever used any other forms of tobacco or nicotine? No [email or web address] Information not available 05/15/2023 What is your level of alcohol consumption? None [email or web address] Information not available 05/15/2023 Mental Status None recorded. Family History Relationship Description Onset Age of this Age Resolved Age Notes LastModified by Organization Details LastModified Time Sister Myocardial infarction [email or web address] Not available 11/11 09:13:13 Medical History No medical history recorded. Immunizations Vaccine Type Date Status Note Provider Nam e and Address Organization Details Recorded Time Influenza, split virus, trivalent, preservative 4 completed Not Available [facility] 06/23/2023 02:43:23 Influenza, split virus, trivalent, preservative 6 completed Celina rios, [facility] 11/11/2024 09:04:55 Influenza, split virus, trivalent, preservative 7 completed Celina rios, [facility] 11/11/2024 09:04:55 Influenza, split virus, trivalent, preservative 5 completed Celina rios, [facility] 11/11/2024 09:04:55 Influenza, split virus, trivalent, preservative 3 completed Not Available [facility] 05/13/2025 09:38:41 Influenza, adjuvanted, trivalent, PF 7 completed Not Available [facility] 05/13/2025 09:38:41 Influenza, high-dose, trivalent, PF 8 completed Not Available [facility] 05/13/2025 09:38:41 pneumococcal polysaccharide PPV23 0 completed Not Available [facility] 05/13/2025 09:38:41 zoster recombinant 1 completed Not Available [facility] 05/13/2025 09:38:41 COVID-19, mRNA, LNP-S, PF, 100 mcg/0.5mL dose or 50 mcg/0.25mL dose 1 completed Not Available [facility] 05/13/2025 09:38:41 COVID-19, mRNA, LNP-S, PF, 100 mcg/0.5mL dose or 50 mcg/0.25mL dose 1 completed Not Available [facility] 05/13/2025 09:38:41 Tdap 1 completed Not Available [facility] 05/13/2025 09:38:41 zoster recombinant 1 completed Not Available [facility] 05/13/2025 09:38:41 COVID-19, mRNA, LNP-S, PF, 100 mcg/0.5mL dose or 50 mcg/0.25mL dose 1 completed Not Available [facility] 05/13/2025 09:38:41 COVID-19, mRNA, LNP-S, PF, 100 mcg/0.5mL dose or 50 mcg/0.25mL dose 2 completed Not Available [facility] 05/13/2025 09:38:41 COVID-19, mRNA, LNP-S, bivalent, PF, 50 mcg/0.5 mL or 25mcg/0.25 mL dose 2 completed Not Available [facility] 05/13/2025 09:38:41 Pneumococcal conjugate PCV20, polysaccharide [id number] conjugate, adjuvant, PF 3 completed Not Available [facility] 05/13/2025 09:38:41 COVID-19, mRNA, LNP-S, bivalent, PF, 50 mcg/0.5 mL or 25mcg/0.25 mL dose 3 completed Not Available [facility] 05/13/2025 09:38:41 Influenza, high-dose, quadrivalent, PF 3 completed Not Available [facility] 05/13/2025 09:38:41 COVID-19, mRNA, LNP-S, PF, 50 mcg/0.5 mL 3 completed Not Available [facility] 05/13/2025 09:38:41 Influenza, split virus, trivalent, PF 4 completed Not Available [facility] 05/13/2025 09:38:41 COVID-19, mRNA, LNP-S, PF, 50 mcg/0.5 mL 4 completed Not Available [facility] 05/13/2025 09:38:41 Past Encounters Encounter ID Performer Location Encounter Start Date Encounter Closed Date Diagnosis/Indication Diagnosis SNOMED-CT Code Diagnosis ICD10 Code Diagnosis Note [id number] Kennedy Michaud DO [facility] ([facility]) [address] [place] [id number] 02/19/2023 12:37:11 02/19/2023 18:48:24 Coronary atherosclerosis 366289104 I25.119 per [employer] done last mt, showed scaring, but no occuslive disease. I reviewed and added to chart after discussion with pt. Chronic ob structive pulmonary disease 10706575 J44.9 stable. no new meds Mixed hyperlipidemia 267 795718 E78.2 pt has declined statin medication . will [facility]. counseled on diet, exercise Prepatellar bursitis 170 60494 M70.41 recurrence . counseled on dx. recommend eval by ortho vs another drainage. pt asking for drainage of fluid today. Kennedy Michaud DO [facility]) [address] [place] [id number] 05/15/2023 09:24:47 05/15/2023 14:02:19 Chronic obstructive pulmonary disease 75819218 J44.9 stable. no hx of smoking, likely 2nd hand smoke. Hyperlipidemia 50415349 E78.5 reviewed labs, continue pravastati n. counseled Benign pro static hyperplasia with outflow obstruction 234199950 N40.1 continue finasterid e and tamsulosin . stable. Chronic insomnia 7335484 04 F51.04 counseled on sleep hygeine, meds, suppliment s. will start rx below. monitor. Return to office with no improvemen t or any problems. Go to ER with severe worsening or severe problems. [id number] Kennedy Michaud DO [facility] ([facility]) [address] [place] [id number] 11/07/2023 09:08:24 11/07/2023 10:41:41 Chronic obstructive pulmonary disease 48393191 J44.9 stable. no hx of smoking, likely 2nd hand smoke.10/26 01/18- chronic lung damage on CT, c/w COPD. Pt not having symptoms. Will not do PFT's at this time. Hyperlipidemia 79778527 E78.5 11/07/23- [facility], continues Pravastati n. Basal cell carcinoma of face 232137696 C44.310 11/07/23- right face, counseled will freeze these today. Pt tolerated well. Counseled on aftercare. Generalized rash 2955179 06 R21 11/07/23- penile, advised A&D ointment, use this especially when he is going to be out away from home for a long day. Inguinal hernia 19003999 0 K40.90 11/07/23- b/l counseled symptoms mild at this time, discussed referral to Surgeon or monitoring at this time. Pt doesn't feel this is bothering him much at this time, prefers we monitor. Counseled see ER immediatel y for developmen t of severe pain, bulging. hernia that is not reducible. [id number] Kennedy Michaud DO [facility] ([facility]) [address] [place] [id number] 05/13/2024 09:31:25 05/13/2024 17:53:27 Chronic obstructive pulmonary disease 20282804 J44.9 stable. no hx of smoking, likely 2nd hand smoke.10/26 01/18- chronic lung damage on CT, c/w COPD. Pt not having symptoms. Will not do PFT's at this time. Hyperlipidemia 99187020 E78.5 [facility] dec 2023, continues Pradariotati n. Basal cell carcinoma of face 588045639 C44.310 05/13/24- recurrence , treated by excision by dermatolog y at [place], right neck.11/07- right face, counseled will freeze these today. Pt tolerated well. Counseled on aftercare. Chronic insomnia 5050482 04 F51.04 counseled on sleep hygeine, meds, suppliment s. no new meds at this time due to S/e, risks. Prepatella r bursitis of right knee 5834829487 66818 M70.41 recurred a few wks ago, spontaneou s resolution . Return to office with no improvemen t or any problems. Go to ER with severe worsening or severe problems. [id number] Kennedy Michaud DO [facility] ([facility]) [address] [place] [address] [place] [phone] 11/11/2024 08:55:09 11/17/2024 09:04:10 Chronic obstructive pulmonary disease 86025630 J44.9 stable. no hx of smoking, likely 2nd hand smoke.10/26 01/18- chronic lung damage on CT, c/w COPD. Pt not having symptoms. Will not do PFT's at this time. Hyperlipidemia 38664119 E78.5 [facility] with [facility] stable dec 2023, continues Osito sarmiento. Inguinal hernia 09765560 0 K40.90 11/11/24- deteriorat ing, pain increasing , seeing [facility], they are working on referral to Dr. Root with [facility].- b/l counseled symptoms mild at this time, discussed referral to Surgeon or monitoring at this time. Pt doesn't feel this is bothering him much at this time, prefers we monitor. Counseled see ER immediatel y for developmen t of severe pain, bulging. hernia that is not reducible. Chest pain 68746690 R07. 9 11/11/24- intermitte nt CP and MAR, appt with Cardio in Nov to discuss. Counseled see ER immediatel y if CP severe or not going away, o/w keep upcoming appt with Dr. Macias. Counseled discuss with Dr. Macias he is fabricio g inguinal repair surgery, will need surgical clearance. [id number] Kennedy Michaud DO [facility] ([facility]) [address] [place] [address] 05/13/2025 09:37:54 05/19/2025 15:07:11 Coronary arteriosclerosis 80013225 I25.10 Stent placed in LAD 01/23/[address] Macias, taking Plavix, for at least one year. Neck pain 23275202 M54.2 Counseled muscle tightness, recommend heat and massage therapy. Ok to continue Ibuprofen PRN and Aspercreme . Benign pro static hyperplasia with outflow obstruction 852931486 N40.1 continue finasterid e and tamsulosin . stable. Chronic insomnia 2965602 04 F51.04 counseled on sleep hygeine, meds, supplement s. no new meds at this time due to S/e, risks. Chronic ob structive pulmonary disease 58449796 J44.9 stable. no hx of smoking, likely 2nd hand smoke.10/26 01/18- chronic lung damage on CT, c/w COPD. Pt not having symptoms. Will not do PFT's at this time. Hyperlipidemia 04512789 E78.5 [facility] with [facility], continues Pradariotamerced n. Essential hypertension 45346000 I10 Off antihypert ensive's per Cardiology , BP improved, monitoring at home. Health Concerns Section Related Observation LastModified by Organization Detai ls LastModified Time None Recorded Concern Status LastModified by Organization Details LastModified Time None Recorded Advance Directives Directive None Recorded Payers Insurance Date Sequence Insurance Name Policy Number Policy Fox Covered Member ID Fox Member ID Guarantor Name 05/13/2025 1 [facility] (HMO) [id number] Landon Guevara [id number] Landon Pati Ismael 05/13/2025 1 [facility] (MEDICARE REPLACEMENT/A DVANTAGE - PPO) Landon Guevara [id number] Landon Guevara 05/19/2025 1 [facility] (MEDICARE REPLACEMENT/A DVANTAGE - HMO) [id number] Landon Guevara [id number] Landon Guevara Notes Date Note Type Note Provider Name and Address Organization Details Recorded Time 05/15/20 23 text/ht ml COPDReported bypatient.Duration:chronic Severity:mild; Uses nebulizer/inhaler an average of times/week lately Alleviating factors:relieved with restNotes:[address] [address]IO Scan ReportSignedPatient: Landon Guevara #: [id number]: 9Acct#:[id number]/S ex: 83 / MADM Date: 04/25/23Loc: RADRoom/Bed:Attending Dr: Maggie Bah FNPOrdering Provider/Ordering MD: Maggie Bah FNPDate of Service: 04/25/23Procedure(s): CT chest w con* [id number] Number(s): [id number] Number: [id number]: [id number] chest w con* [id number]: ABNORMAL CT CHEST REPEAT 12 MONTHSACCESSION #: [id number] CT/CT chest w con* [id number]:1. Subcentimeter, bilateral noncalcified pulmonary nodules and thickening along the RIGHT minor fissure are stable since 12/07/2020. No new or increasing size of nodule or mass. No additional follow-up necessary.2. Chronic emphysema.3. Hepatic and RIGHT renal cysts.Dictated By:Connie Calvo DOSigned By:Connie Calvo DOSigned Date/Time:04/25/23 1135HyperlipidemiaReported bypatient.Adherence to Treatment Plan:follows recommended diet 6 month f/u on HLD, COPD, and BPH pt c/o having trouble sleeping, states he will fall asleep just fine having trouble staying asleep. waking up around 3am, unable to go back to sleep. had CT done at [place] for f/u on lung nodule: pt states he recently had a fall, left arm pain, with some bleeding Kennedy Michaud DO [address] [place] [address], [phone], [facility], Lakshmi 05/28/2023 11:55:27 11/07/20 23 text/ht ml COPDReported bypatient.Duration:chronic Severity:mild; Uses nebulizer/inhaler an average of times/week lately Alleviating factors:relieved with restNotes:Patient not aware of COPDHyperlipidemiaReported bypatient.Control:usually well controlled Adherence to Treatment Plan:follows recommended diet; exercises; takes medications as prescribed Complications:no coronary artery disease; no peripheral artery disease; no cardiovascular disease Pt presents for recheck of chronic illness, 6 months HLD, COPD, BPH. Doing well. No recent illness or hospitalization. Continue prescription medications, tolerating well, no recent medication changes. Denies any severe depression or anxiety. He continues Pravastatin. Lipid panel with [facility], last done 6 months ago, reports he has labs checked every time he goes to their clinic. Occasional SOB with exertion, rare, o/w no issues with breathing.Never smoker. Was around smokers for 4 years when he was in the [place]. He continues to have difficulty sleeping, able to fall asleep with ease, however he wakes up around 0300 and is unable to get back to sleep. We prescribed Belsomra, however he was unable to fill this d/t cost and insurance and [facility] wouldn't cover.He has tried several OTC meds without success, doesn't recall having tried other prescription sleep aid. Skin concern right lower face, can't seem to get rid of it, present for 2-3 years, worsened lately. He has seen Derm and had several things burned off , never had this area worked on. Having some b/l groin pain. He reports h/o b/l inguinal hernia repair, feels like he can feel a gap in the muscle there and is experiencing discomfort, mainly with activity, movement, when he gets up too fast, or when he lifts something.Having chronic urinary symptoms, unchanged, nothing acute. Has a penile rash right now, assumes it is from dribbling, has been applying CARRI without improvement, redness continues. Kennedy Michaud, DO [address] [place] [address], [phone], [facility], Lakshmi 11/19/2023 17:38:06 05/13/20 24 text/ht ml COPDReported bypatient.Duration:chronic Severity:mild; Uses nebulizer/inhaler an average of times/week lately Alleviating factors:relieved with restNotes:Patient not aware of COPDHyperlipidemiaReported bypatient.Control:usually well controlled Adherence to Treatment Plan:follows recommended diet; exercises; takes medications as prescribed Complications:no coronary artery disease; no peripheral artery disease; no cardiovascular disease Pt presents for recheck of chronic illness, 6 months HLD, COPD, BPH. pt reports he had skin ca taken off right side of face/cheek, was froze here in clinic and cpl months ago was seen at [place] and was sent for bx and then derm surgically removed any remainder pt reports all was removed and no further concerns at this time Doing well. No recent illness or hospitalization. Continue prescription medications, tolerating well, no recent medication changes. Denies any severe depression or anxiety. He continues Pravastatin. Lipid panel with [facility], last done 01/24/24, reports he has labs checked every time he goes to their clinic. cholesterol 172 and trigs 100 Occasional SOB with exertion, rare, o/w no issues with breathing.Never smoker. Was around smokers for 4 years when he was in the [place]. pt reports still having difficulty sleeping not taking anything at this time d/t s/e of other meds and cost of prescription meds not affordable Kennedy Michaud, DO [address] [place], [phone], [facility] 05/13/2024 15:10:44 11/11/20 24 text/ht ml COPDReported bypatient.Duration:chronic Severity:mild Alleviating factors:relieved with rest Associated Symptoms:dyspnea during exertionNotes:Patient not aware of COPDHyperlipidemiaReported bypatient.Control:usually well controlled Adherence to Treatment Plan:follows recommended diet; exercises; takes medications as prescribed Complications:no coronary artery disease; no peripheral artery disease; no cardiovascular disease Pt presents for recheck of chronic illness, 6 months HLD, COPD, BPH. He c/o that he is still having discomfort d/t his hernia, [facility]Having intermittent pain in b/l groin, [facility] working [facility] consult with [facility]geon to discuss repair. Considering Dr. Root with [facility]. Doing well. No recent illness or hospitalization. Continue prescription medications, tolerating well, no recent medication changes. Denies any severe depression or anxiety. He continues Pravastatin. [facility] with [facility], last done 01/24/24, reports he has labs checked every time he goes to their clinic. cholesterol 172 and trigs 100 Pt reports still having difficulty sleeping, not taking anything at this time d/t s/e of other meds and cost of prescription meds not affordable He has an upcoming Cardiology appt with Dr. Macias in Nov, for SOB, occasional CP.Occasional SOB with exertion, rare, o/w no issues with breathing.Never smoker. Was around smokers for 4 years when he was in the [place]. He recently saw Ortho for his right knee, xray done, decided on no tx at this time. Kennedy Michaud, [address] [place], [phone], [facility] 11/15/2024 17:46:15 05/13/20 25 text/ht ml COPDReported bypatient.Duration:chronic Severity:mild Alleviating factors:relieved with rest Associated Symptoms:dyspnea during exertionHyperlipidemiaReported bypatient.Control:usually well controlled Adherence to Treatment Plan:follows recommended diet; exercises; takes medications as prescribed Complications:no coronary artery disease; no peripheral artery disease; no cardiovascular disease Pt presents for recheck of chronic illness, 6 months HLD, COPD, BPH. Labs last checked at [place], unsure of date Pt reports still having difficulty sleeping, not taking anything at this time d/t s/e of other medsH/o chronic insomnia. Saw Cardio 3-4 weeks ago for f/u, had stent placed 01/23/25 in the LAD per Dr. Macias. Taking Plavix, planning to stay on this for one year. He admits he recently stopped all bp medication due to hypotension, per Cardiology, 4 days ago. Checking bp daily. He feels better the last 2-3 days than he has in a long time, BP 120's ( 126/80 in clinic this am).He did not bring log, states bp is running 120s/80s. admits he is not having any dizziness, headaches like he was. Left neck pain, no known injury. taking Ibuprofen and using Aspercreme topical ointment, hot water in shower with some improvement, sx improving but not resolvedOne time he felt some numbness down the left arm, not constantly, no recurrence. Kennedy Michaud, DO [address] [place] [address], [phone], [facility] 05/14/2025 18:01:46
[2025-06-12 18:47] VITALS: BP 166/76; PULSE 55; RESP 16; TEMP 36.6; O2SAT 98; BMI 24.0
[2025-06-12 20:26] LABS: Hematocrit 41.4 % (37-53); Hemoglobin 13.70 g/dL (11.27-16.99); Mean Corpuscular HGB Conc 33.1 g/dL (30-55); Mean Corpuscular Hemoglobin 29.6 pg (27-33); Mean Corpuscular Volume 89.4 fl (82-101); Nucleated Red Blood Cells % 0 %; Platelet Count 196 10^3/cmm (157-399); Red Blood Count 4.63 10^6/uL (3.85-5.65); White Blood Count 6.39 10^3/uL (3.29-11.43)
[2025-06-12 20:49] LABS: Alanine Aminotransferase 31 U/L (0-41); Albumin Level 4.2 g/dL (3.5-5.2); Alkaline Phosphatase 78 U/L (40-130); Anion Gap 16.3 (5-19); Aspartate Amino Transferase 23 U/L (0-40); Blood Urea Nitrogen 26 mg/dL (8-23); Calcium 9.3 mg/dL (8.5-10.5); Carbon Dioxide 24 mmol/L (22-29); Chloride 105 mmol/L (98-107); Creatinine Clr Calc Pharmacy 41.5352; Globulin 2.4 g/dL (1.3-4.6); Glucose 91 mg/dL (65-115); Osmolality Calculated 296 mOsm/kg (285-295); Potassium 4.3 mmol/L (3.5-5.1); Sodium 141 mmol/L (136-145); Total Protein 6.6 g/dL (6.6-8.7)
== END 2025-06-12 21:13 | disposition left against medical advice (07) ==
PROVIDERS: Student in an Organized Health Care Education/Training Program; Emergency Provider Family Medicine; PCP Electrodiagnostic Medicine
DX: Z01.89 Encounter for other specified special examinations (principal); Z53.21 Procedure and treatment not carried out due to patient leaving prior to being seen by health care provider
CPT/HCPCS: 36415; 80053; 85025

== ENCOUNTER → 2025-08-20 08:01 | Outpatient (BNVA) | payer OTHER, SELFPAY | PROVIDERS: PCP Electrodiagnostic Medicine; Visit Provider Nurse Practitioner Family | DX: L57.8 Other skin changes due to chronic exposure to nonionizing radiation (principal); L81.4 Other melanin hyperpigmentation; D22.5 Melanocytic nevi of trunk; L82.1 Other seborrheic keratosis; S51.812A Laceration without foreign body of left forearm, initial encounter; X58.XXXA Exposure to other specified factors, initial encounter; Z08 Encounter for follow-up examination after completed treatment for malignant neoplasm; Z85.828 Personal history of other malignant neoplasm of skin; L57.0 Actinic keratosis | CPT/HCPCS: 17000; 99214 ==